=== PATIENT | male | born 1945 | race Caucasian/White ===

== ENCOUNTER → 2016-08-22 | Outpatient (CLI) | payer MEDICARE, BC | LOC: MW.CHFP 08:00 | PROVIDERS: ATTEND Emergency Medicine | DX: J06.9 Acute upper respiratory infection, unspecified (principal); B97.89 Other viral agents as the cause of diseases classified elsewhere | CPT/HCPCS: G0463 ==

== ENCOUNTER 2017-07-18 19:57 | Emergency (ER) | payer MEDICARE, BC ==
[2017-07-18] MEDS ORDERED: Sodium Chloride 0.9% 10 ML Syringe FLUSH PRN (20:25)
[2017-07-18] MEDS ORDERED: Sodium Chloride 0.9% 2.5 ML Syringe FLUSH PRN (20:25)
--- NOTE | 2017-07-18 20:25 | EDM.PDOC ---
<Vesta Galdamez - Last Filed: 07/18/17 21:24> ED HPI GENERAL MEDICAL PROBLEM - General Chief Complaint: Genitourinary Problem Stated Complaint: BLOOD IN URINE Time Seen by Provider: 07/18/17 20:22 Source of Information: Reports: Patient, Family History Limitations: Reports: No Limitations - History of Present Illness INITIAL COMMENTS - FREE TEXT/NARRATIVE: HISTORY AND PHYSICAL: []72-year-old male presenting with blood in his urine today History of Present Illness: []Patient noticed some brownish color to his urine this morning, now it is dark red in color History of acute renal failure and has seen Dr. Myles for the last 2 years in April was told that he did not need to come back and see him he is not on dialysis Review of Systems: As per history of present illness and below otherwise all systems reviewed and negative. Past medical history: As per history of present illness and as reviewed below otherwise noncontributory. Surgical history: As per history of present illness and as reviewed below otherwise noncontributory. Social history: No reported history of drug or alcohol abuse. Family history: As per history of present illness and as reviewed below otherwise noncontributory. Physical exam: Alert and oriented gentleman answering questions appropriately in full sentences without any shortness of breath he denies any pain had some slight discomfort after his last urination. HEENT: Atraumatic, normocehpalic, pupils reactive, negative for conjunctival pallor or scleral icterus, mucous membranes moist, throat clear, neck supple, nontender, trachea midline. Lungs: Clear to auscultation, breath sounds equal bilaterally, chest non tender. Heart: S1S2, regular, negative for clicks, rubs, or JVD. Abdomen: Soft, nondistended, nontender. Negative for masses or hepatossplenmegaly. Negative for costovertebral tenderness. Pelvis: Stable nontender. Genitourinary: Deferred. Rectal: Deferred Extremities: Atraumatic, negative for cords or calf pain. Neurovascular unremarkable. Neuro: Awake, alert, oriented. Cranial nerves II through XII unremarkable. Cerebellum unremarkable. Motor and sensory unremarkable throughout. Exam nonfocal. Diagnostics: [CBC CMP] Therapeutics: [Cipro 400 IV] Impression: [Urinary tract infection] Hematuria Plan: []Discharged to home Cipro 500 twice a day by mouth Follow up with Dr. Beth on Friday July 21, [address] Ely Definitive disposition and diagnosis as appropriate pending reevaluation and review of above. Onset: Today, Sudden Duration: Day(s): (1) Location: Reports: Pelvis Severity: Moderate Improves with: Reports: None Worsens with: Reports: None - Related Data Allergies Allergy/AdvReac Type Severity Reaction Status Date / Time No Known Allergies Allergy Verified 07/18/17 20:16 Home Meds: Home Meds Latanoprost [Xalatan 0.005% Ophth Soln] 1 drop EYEBOTH DAILY 12/26/14 [History] Rosuvastatin [Crestor] 20 mg PO BEDTIME 12/26/14 [History] metFORMIN HCl [Metformin HCl] 500 mg PO BID 12/26/14 [History] Ciprofloxacin/Ciprofloxa HCl [Cipro Xr 500 mg Tablet] 500 mg PO BID #10 tbmp.24hr 07/18/17 [Rx] Furosemide 20 mg PO DAILY 07/18/17 [History] Metoprolol Succinate [Toprol XL] 12.5 mg PO DAILY 07/18/17 [History] Potassium Chloride 20 meq PO DAILY 07/18/17 [History] Timolol Maleate [Istalol] 1 drop OP DAILY 07/18/17 [History] Past Medical History Other HEENT History: wears glasses and has upper denture Other Respiratory History: hx reactive airwary disease Other Genitourinary History: kidney failure - Past Surgical History Other Musculoskeletal Surgeries/Procedures:: R knee replacement - 2015 Social & Family History - Tobacco Use Smoking Status *Q: Unknown Ever Smoked Used Tobacco, but Quit: Yes Second Hand Smoke Exposure: No - Alcohol Use Days Per Week of Alcohol Use: 3 Number of Drinks Per Day: 2 Total Drinks Per Week: 6 - Recreational Drug Use Recreational Drug Use: No ED ROS GENERAL - Review of Systems Review Of Systems: ROS reveals no pertinent complaints other than HPI. ED EXAM, RENAL/ - Physical Exam Exam: See Below (see dictation) Course - Vital Signs Last Recorded V/S: Last Vital Signs Temp 36.2 C 07/18/17 22:25 Pulse 64 07/18/17 22:25 Resp 18 07/18/17 22:25 BP 127/76 07/18/17 22:25 Pulse Ox 96 03/09/18 22:25 - Orders/Labs/Meds Orders: Active Orders 24 hr Category Date Time Status CULTURE URINE [RM] Stat Lab 07/18/17 20:12 Received Saline Lock Insert [OM.PC] Stat Oth 07/18/17 20:25 Ordered Labs: Laboratory Tests 07/18/17 07/18/17 07/18/17 Range/Units 20:12 20:32 20:32 WBC 6.89 (4.0-11.0) K/uL RBC 4.51 (4.50-5.90) M/uL Hgb 14.1 (13.0-17.0) g/dL Hct 41.8 (38.0-50.0) % MCV 92.7 (80.0-98.0) fL MCH 31.3 (27.0-32.0) pg MCHC 33.7 (31.0-37.0) g/dL RDW Std Deviation 47.8 (28.0-62.0) fl RDW Coeff of Cathie 14 (11.0-15.0) % Plt Count 211 (150-400) K/uL MPV 9.90 (7.40-12.00) fL Neut % (Auto) 61.5 (48.0-80.0) % Lymph % (Auto) 26.9 (16.0-40.0) % Beaver % (Auto) 7.7 (0.0-15.0) % Eos % (Auto) 3.8 (0.0-7.0) % Baso % (Auto) 0.1 (0.0-1.5) % Neut # (Auto) 4.2 (1.4-5.7) K/uL Lymph # (Auto) 1.9 (0.6-2.4) K/uL Beaver # (Auto) 0.5 (0.0-0.8) K/uL Eos # (Auto) 0.3 (0.0-0.7) K/uL Baso # (Auto) 0.0 (0.0-0.1) K/uL Nucleated RBC % 0.0 /100WBC Nucleated RBCs # 0 K/uL Sodium 142 (136-148) mmol/L Potassium 4.2 (3.5-5.1) mmol/L Chloride 106 (98-107) mmol/L Carbon Dioxide 24.4 (21.0-32.0) mmol/L BUN 18 (7.0-18.0) mg/dL Creatinine 1.2 (0.8-1.3) mg/dL Est Cr Clr Drug Dosing 54.83 mL/min Estimated GFR (MDRD) 59.3 ml/min Glucose 93 (74-106) mg/dL Calcium 9.0 (8.5-10.1) mg/dL Total Bilirubin 0.7 (0.2-1.0) mg/dL AST 29 (15-37) IU/L ALT 21 (14-63) IU/L Alkaline Phosphatase 94 (46-116) U/L Total Protein 7.3 (6.4-8.2) g/dL Albumin 3.6 (3.4-5.0) g/dL Globulin 3.7 H (2.0-3.5) g/dL Albumin/Globulin Ratio 1.0 L (1.3-2.8) Urine Color RED Urine Appearance SLT CLOUDY Urine pH 6.0 (5.0-8.0) Ur Specific Cantil >= 1.030 (1.001-1.035) Urine Protein >=300 (NEGATIVE) mg/dL Urine Glucose (UA) NEGATIVE (NEGATIVE) mg/dL Urine Ketones NEGATIVE (NEGATIVE) mg/dL Urine Occult Blood LARGE H (NEGATIVE) Urine Nitrite POSITIVE H (NEGATIVE) Urine Bilirubin SMALL H (NEGATIVE) Urine Ictotest NEGATIVE Urine Urobilinogen 4.0 H (<2.0) EU/dL Ur Leukocyte Esterase NEGATIVE (NEGATIVE) Urine RBC TOO NUMBEROUS TO CT (0-2/HPF) Urine WBC 3-5 (0-5/HPF) Ur Epithelial Cells RARE (NONE-FEW) Urine Bacteria 1+ H (NEGATIVE) Urinalysis Comment Meds: Medications Discontinued Medications Generic Name Dose Route Start Last Admin Trade Name Freq PRN Reason Stop Dose Admin Ciprofloxacin/Dextrose 400 mg/ 200 mls @ 200 mls/hr 07/18/17 21:15 07/18/17 21:22 Premix IV 200 mls/hr Q12H JAMILAH Administration Sodium Chloride 10 ml 07/18/17 20:25 Saline Flush FLUSH ASDIRECTED PRN Keep Vein Open Sodium Chloride 2.5 ml 07/18/17 20:25 Saline Flush FLUSH ASDIRECTED PRN Keep Vein Open Departure - Departure Time of Disposition: 21:19 Disposition: Home, Self-Care 01 Condition: Good Clinical Impression: UTI, Urinary tract infectious disease, Hematuria syndrome - Discharge Information Prescriptions: Ciprofloxacin/Ciprofloxa HCl [Cipro Xr 500 mg Tablet] 500 mg PO BID #10 tbmp.24hr Instructions: Urinary Tract Infection, Adult, Hematuria, Adult Referrals: PCP,None [Primary Care Provider] - Chava Ely MD [Physician] - Forms: ED Department Discharge Additional Instructions: The following information is given to patients seen in the emergency department who are being discharged to home. This information is to outline your options for follow-up care. We provide all patients seen in our emergency department with a follow-up referral. The need for follow-up, as well as the timing and circumstances, are variable depending upon the specifics of your emergency department visit. If you don't have a primary care physician on staff, we will provide you with a referral. We always advise you to contact your personal physician following an emergency department visit to inform them of the circumstance of the visit and for follow-up with them and/or the need for any referrals to a consulting specialist. The emergency department will also refer you to a specialist when appropriate. This referral assures that you have the opportunity for followup care with a specialist. All of these measure are taken in an effort to provide you with optimal care, which includes your followup. Under all circumstances we always encourage you to contact your private physician who remains a resource for coordinating your care. When calling for followup care, please make the office aware that this follow-up is from your recent emergency room visit. If for any reason you are refused follow-up, please contact the [facility] emergency department at and asked to speak to the emergency department charge nurse. You have a urinary tract infection You Have blood in the urine (hematuria) You're given an antibiotic of Cipro 400 mg IV in ER Prescription was sent to [facility] for Cipro 500 mg twice a day Call Dr. Beth to follow-up Saturday, July 22, 2017 Referral will be made to Dr. Ely for the hematuria Check your blood sugar daily to make sure the medication is not causing you to have low sugars <Kylee Schuster - Last Filed: 07/19/17 00:06> ED HPI GENERAL MEDICAL PROBLEM - History of Present Illness INITIAL COMMENTS - FREE TEXT/NARRATIVE: Please add to diagnostics that a UA and urine culture were sent.
[2017-07-18] MEDS ORDERED: Ciprofloxacin in D5W 400 MG in Premix Bag 1 BAG IV SCH ×2 (21:15)
[2017-07-18 22:32] VITALS: BP 127/76
== END 2017-07-18 22:25 | disposition home or self-care (01) ==
LOC: MW.ED 19:57
DX: N39.0 Urinary tract infection, site not specified (principal); R31.9 Hematuria, unspecified; Z87.891 Personal history of nicotine dependence; Z79.899 Other long term (current) drug therapy
CPT/HCPCS: 36415; 80053; 81001; 85025; 87086; 96365; 99283; J0744

== ENCOUNTER 2017-08-08 09:32 | Day surgery (SDC) | payer MEDICARE, BC ==
[2017-08-08] MEDS ORDERED: Lactated Ringers 1,000 ML IV SCH ×2 (10:00→11:30)
--- NOTE | 2017-08-08 10:28 | PCM.PREANE ---
Preanesthetic Assessment - Anesthesia/Transfusion/Family Hx Anesthesia History: Prior Anesthesia Without Reaction Family History of Anesthesia Reaction: No Transfusion History: No Prior Transfusion(s) Intubation History: Unknown - Review of Systems General: No Symptoms Pulmonary: No Symptoms Cardiovascular: No Symptoms Gastrointestinal: Other (h/o colon polyp '09) Neurological: No Symptoms Other: Reports: None - Physical Assessment O2 Sat by Pulse Oximetry: 95 Respiratory Rate: 16 Vital Signs: Last Vital Signs Temp 36.1 C 08/08/17 10:12 Pulse 65 08/08/17 10:12 Resp 16 08/08/17 10:12 BP 147/75 H 08/08/17 10:12 Pulse Ox 95 08/08/17 10:12 Height: 1.75 m Weight: 111.13 kg ASA Class: 3 Mental Status: Alert & Oriented x3 Airway Class: Mallampati = 2 Dentition: Reports: Dentures (upper) Thyro-Mental Finger Breadths: 3 Mouth Opening Finger Breadths: 3 ROM/Head Extension: Full Lungs: Clear to Auscultation, Normal Respiratory Effort Cardiovascular: Regular Rate, Regular Rhythm - Allergies Allergies/Adverse Reactions: Allergies Allergy/AdvReac Type Severity Reaction Status Date / Time meloxicam Allergy Cannot Verified 08/05/17 12:22 Remember - Blood Blood Available: No - Anesthesia Plan Pre-Op Medication Ordered: None Beta Ramon: Metoprolol Med Last Dose Date: 08/07/17 Med Last Dose Time: 23:00 - Acknowledgements Anesthesia Type Planned: MAC Pt an Appropriate Candidate for the Planned Anesthesia: Yes Alternatives and Risks of Anesthesia Discussed w Pt/Guardian: Yes Pt/Guardian Understands and Agrees with Anesthesia Plan: Yes PreAnesthesia Questionnaire HEENT History: Reports: Cataract, Other (See Below) Other HEENT History: wears glasses, upper denture Cardiovascular History: Reports: CAD, High Cholesterol, Hypertension, VT, Stents Other Cardiovascular History: VT in 2001 with stent placed x1 LAD Other Respiratory History: hx reactive airwary disease Gastrointestinal History: Reports: Colon Polyp Genitourinary History: Other Genitourinary History: acute kidney injury due to NSAID, on hemo dialysis x3 months in 2014 Musculoskeletal History: Reports: Fracture, Osteoarthritis Other Musculoskeletal History: hx fx leg Endocrine/Metabolic History: Reports: Diabetes, Type II, Obesity/BMI 30+ - Infectious Disease History Infectious Disease History: Reports: Chicken Pox, Measles, Mumps - Past Surgical History Head Surgeries/Procedures: Reports: None HEENT Surgical History: Reports: None Cardiovascular Surgical History: Reports: Coronary Artery Stent Respiratory Surgical History: Reports: None GI Surgical History: Reports: Appendectomy, Colonoscopy Male Surgical History: Reports: Other (See Below) Other Male Surgeries/Procedures: hemo dialysis access catheter placement and removal in 2014 Endocrine Surgical History: Reports: None Musculoskeletal Surgical History: Reports: Knee Replacement Other Musculoskeletal Surgeries/Procedures:: hx rt knee replacement - SUBSTANCE USE Smoking Status *Q: Former Smoker Tobacco Use Within Last Twelve Months: No Second Hand Smoke Exposure: No Days Per Week of Alcohol Use: 3 Number of Drinks Per Day: 2 Total Drinks Per Week: 6 Recreational Drug Use History: No - HOME MEDS Home Medications: Home Meds Latanoprost [Xalatan 0.005% Ophth Soln] 1 drop EYEBOTH BEDTIME 12/26/14 [History ] Rosuvastatin [Crestor] 20 mg PO BEDTIME 12/26/14 [History] metFORMIN HCl [Metformin HCl] 500 mg PO BID 12/26/14 [History] Furosemide 20 mg PO DAILY 07/18/17 [History] Metoprolol Succinate [Toprol XL] 12.5 mg PO DAILY 07/18/17 [History] Potassium Chloride 20 meq PO DAILY 07/18/17 [History] Timolol Maleate [Istalol] 1 drop EYERT DAILY 07/18/17 [History] - CURRENT (IN HOUSE) MEDS Current Meds: Current Medications Lactated Ringer's (Ringers, Lactated) 1,000 mls @ 125 mls/hr IV ASDIRECTED [facility] Last Admin: 08/08/17 10:10 Dose: 125 mls/hr
[2017-08-08] MEDS ORDERED: Lidocaine 2% 5 ML SDV ONE (10:44)
[2017-08-08] MEDS ORDERED: Propofol 200 MG/20 ML SDV ONE (10:45)
[2017-08-08] MEDS ORDERED: Midazolam 1 MG/ML 2 ML SDV ONE (10:46)
[2017-08-08] MEDS ORDERED: fentaNYL 100 MCG/2 ML SDV ONE (10:46)
--- NOTE | 2017-08-08 11:32 | PCM.OPNOTE ---
- General Post-Op/Procedure Note Date of Surgery/Procedure: 08/08/17 Operative Procedure(s): Colonoscopy Pre Op Diagnosis: Personal history of colon polyps Post-Op Diagnosis: Mild sigmoid diverticulosis Anesthesia Technique: MAC (ASA III) Primary Surgeon: Mckinley Vizcaino Condition: Good Free Text/Narrative:: Dictation [id number] CPT CODE [id number]
--- NOTE | 2017-08-08 12:07 | PCM48HPAN ---
Post Anesthesia Note - EVALUATION WITHIN 48HRS OF ANESTHETIC Vital Signs in Normal Range: Yes Patient Participated in Evaluation: Yes Respiratory Function Stable: Yes Airway Patent: Yes Cardiovascular Function Stable: Yes Hydration Status Stable: Yes Pain Control Satisfactory: Yes Nausea and Vomiting Control Satisfactory: Yes Mental Status Recovered: Yes Resp Rate: 11 - COMMENTS/OBSERVATIONS Free Text/Narrative:: no anesthesia problems
--- NOTE | 2017-08-08 13:01 | OR ---
SURGEON: Mckinley Vizcaino M.D. DATE OF PROCEDURE: 08/08/2017 OPERATION PERFORMED: Colonoscopy. ANESTHESIA: MAC. ASA CLASSIFICATION: III. PREOPERATIVE DIAGNOSIS: Personal history of colon polyps. POSTOPERATIVE DIAGNOSIS: Mild sigmoid diverticulosis. DESCRIPTION OF PROCEDURE: The patient was taken to the endoscopy room and positioned on the endoscopy table in the left lateral decubitus position. Time-out was called for appropriate identification of the patient and procedure. Monitored anesthesia care was provided. The colonoscope was inserted into the rectum and advanced without difficulty to the cecum where the colonoscope was retroflexed to visualize the ascending colon from below, then straightened and slowly withdrawn. The cecum, ascending colon, hepatic flexure, transverse colon, splenic flexure, and descending colon were well visualized where there was a moderate amount of retained liquid fecal material. No tumors or polyps were seen, and there were no angiodysplastic changes or evidence of inflammatory bowel disease. As the colonoscope was withdrawn into the sigmoid colon. A few small scattered sigmoid diverticula were noted. No stricture, spasm, or bleeding was noted. The colonoscope was then withdrawn to the rectum and retroflexed to visualize the anal orifice from above. No tumors, polyps, or acute hemorrhoidal changes were noted. The colonoscope was then straightened, the rectum aspirated, and the colonoscope removed. The patient tolerated the procedure well and was taken to recovery room in stable condition. LAVINIA SALAS /[id number]
[2017-08-08 14:43] VITALS: BP 135/82
== END 2017-08-08 12:12 | disposition home or self-care (01) ==
LOC: MW.SDS 09:32
PROVIDERS: ATTEND Surgery
DX: Z12.11 Encounter for screening for malignant neoplasm of colon (principal); K57.30 Diverticulosis of large intestine without perforation or abscess without bleeding; I25.10 Atherosclerotic heart disease of native coronary artery without angina pectoris; E11.9 Type 2 diabetes mellitus without complications; E78.00 Pure hypercholesterolemia, unspecified; I10 Essential (primary) hypertension; Z95.5 Presence of coronary angioplasty implant and graft; J45.909 Unspecified asthma, uncomplicated; I25.2 Old myocardial infarction; E66.9 Obesity, unspecified; Z68.36 Body mass index [BMI] 36.0-36.9, adult; Z86.010 Personal history of colon polyps; Z88.8 Allergy status to other drugs, medicaments and biological substances; Z79.899 Other long term (current) drug therapy; Z79.84 Long term (current) use of oral hypoglycemic drugs; Z98.890 Other specified postprocedural states; Z87.891 Personal history of nicotine dependence
CPT/HCPCS: G0105; J2250; J3010; J7120; J2704

== ENCOUNTER 2017-08-09 01:37 | Emergency (ER) | payer MEDICARE, BC ==
[2017-08-09] MEDS ORDERED: Sodium Chloride 0.9% 2.5 ML Syringe FLUSH PRN (01:39)
[2017-08-09] MEDS ORDERED: Sodium Chloride 0.9% 10 ML Syringe FLUSH PRN (01:39)
[2017-08-09] MEDS ORDERED: Sodium Chloride 0.9% 1,000 ML IV SCH (01:45)
--- NOTE | 2017-08-09 01:45 | EDM.PDOC ---
ED HPI GENERAL MEDICAL PROBLEM - General Stated Complaint: STOMACH PAINS Time Seen by Provider: 08/09/17 01:38 - History of Present Illness INITIAL COMMENTS - FREE TEXT/NARRATIVE: HISTORY AND PHYSICAL: History of present illness: Patient is a 72-year-old white male presents with concern of right-sided abdominal pain that started approximately 1 hour prior to arrival patient had a colonoscopy earlier today that was unremarkable per patient he denies shortness of breath nausea vomiting fever chills he has had prior appendectomy denies known gallbladder disease Review of systems: As per history of present illness and below otherwise all systems reviewed and negative. Past medical history: As per history of present illness and as reviewed below otherwise noncontributory. Surgical history: As per history of present illness and as reviewed below otherwise noncontributory. Social history: No reported history of drug or alcohol abuse. Family history: As per history of present illness and as reviewed below otherwise noncontributory. Physical exam: HEENT: Atraumatic, normocephalic, pupils reactive, negative for conjunctival pallor or scleral icterus, mucous membranes moist, throat clear, neck supple, nontender, trachea midline. Lungs: Clear to auscultation, breath sounds equal bilaterally, chest nontender. Heart: S1S2, regular, negative for clicks, rubs, or JVD. Abdomen: Soft, nondistended, mild tenderness in the epigastrium and right upper quadrant. Negative for masses or hepatosplenomegaly. Negative for costovertebral tenderness. Pelvis: Stable nontender. Genitourinary: Deferred. Rectal: Deferred. Extremities: Atraumatic, negative for cords or calf pain. Neurovascular unremarkable. Neuro: Awake, alert, oriented. Cranial nerves II through XII unremarkable. Cerebellum unremarkable. Motor and sensory unremarkable throughout. Exam nonfocal. Diagnostics: CBC CMP troponin PT/INR lipase CT abdomen and pelvis chest x-ray EKG Therapeutics: Saline 125 mL an hour Impression: #1 abdominal pain #2 24 hour status post colonoscopy Definitive disposition and diagnosis as appropriate pending reevaluation and review of above. RUQ Pain Score (Numeric/FACES): 5 - Related Data Allergies Allergy/AdvReac Type Severity Reaction Status Date / Time meloxicam Allergy Cannot Verified 08/09/17 01:42 Remember Home Meds: Home Meds Latanoprost [Xalatan 0.005% Ophth Soln] 1 drop EYEBOTH BEDTIME 12/26/14 [History ] Rosuvastatin [Crestor] 20 mg PO BEDTIME 12/26/14 [History] metFORMIN HCl [Metformin HCl] 500 mg PO BID 12/26/14 [History] Furosemide 20 mg PO DAILY 07/18/17 [History] Metoprolol Succinate [Toprol XL] 12.5 mg PO DAILY 07/18/17 [History] Potassium Chloride 20 meq PO DAILY 07/18/17 [History] Timolol Maleate [Istalol] 1 drop EYERT DAILY 07/18/17 [History] Past Medical History HEENT History: Reports: Cataract, Other (See Below) Other HEENT History: wears glasses, upper denture Cardiovascular History: Reports: CAD, High Cholesterol, Hypertension, DE, Stents Other Cardiovascular History: DE in 2001 with stent placed x1 LAD Other Respiratory History: hx reactive airwary disease Gastrointestinal History: Reports: Colon Polyp Other Genitourinary History: acute kidney injury due to NSAID, on hemo dialysis x3 months in 2014 Musculoskeletal History: Reports: Fracture, Osteoarthritis Other Musculoskeletal History: hx fx leg Endocrine/Metabolic History: Reports: Diabetes, Type II, Obesity/BMI 30+ - Infectious Disease History Infectious Disease History: Reports: Chicken Pox, Measles, Mumps - Past Surgical History Head Surgeries/Procedures: Reports: None HEENT Surgical History: Reports: None Cardiovascular Surgical History: Reports: Coronary Artery Stent Respiratory Surgical History: Reports: None GI Surgical History: Reports: Appendectomy, Colonoscopy Male Surgical History: Reports: Other (See Below) Other Male Surgeries/Procedures: hemo dialysis access catheter placement and removal in 2014 Endocrine Surgical History: Reports: None Musculoskeletal Surgical History: Reports: Knee Replacement Other Musculoskeletal Surgeries/Procedures:: hx rt knee replacement Social & Family History - Family History Family Medical History: Noncontributory - Tobacco Use Smoking Status *Q: Former Smoker Used Tobacco, but Quit: Yes Month/Year Tobacco Last Used: quit 35 yrs ago Second Hand Smoke Exposure: No - Caffeine Use Caffeine Use: Reports: Soda - Alcohol Use Days Per Week of Alcohol Use: 3 Number of Drinks Per Day: 2 Total Drinks Per Week: 6 - Recreational Drug Use Recreational Drug Use: No ED ROS GENERAL - Review of Systems Review Of Systems: ROS reveals no pertinent complaints other than HPI. ED EXAM, GENERAL - Physical Exam Exam: See Below (dictation) Course - Vital Signs Text/Narrative:: Patient had uneventful course in the emergency department is pain-free and remained pain-free is eager for discharge I discussed with patient and his CT findings including the suspicious lesion within the bladder he does have a scheduled urology follow-up in [place] I discussed them specifically the concerns of this being addressed CT report was given to patient and for urology follow-up. Patient be discharged on Cipro 500 twice a day he is to return for any recurrence of pain nausea vomiting fever chills as discussed Last Recorded V/S: Last Vital Signs Temp 35.9 C 08/09/17 01:39 Pulse 66 08/09/17 03:08 Resp 18 08/09/17 03:08 BP 123/64 08/09/17 03:08 Pulse Ox 96 08/09/17 03:08 - Orders/Labs/Meds Orders: Active Orders 24 hr Category Date Time Status Cardiac Monitoring [RC] . DIRECTED Care 08/09/17 01:38 Active EKG Documentation Completion [RC] STAT Care 08/09/17 01:38 Active Oxygen Therapy, ED [RC] ASDIRECTED Care 08/09/17 01:38 Active Abdomen Pelvis w Cont [CT] Stat Exams 08/09/17 01:39 Taken Chest 1V Frontal [CR] Stat Exams 08/09/17 01:39 Taken CULTURE BLOOD [BC] Stat Lab 08/09/17 02:06 Received CULTURE BLOOD [BC] Stat Lab 08/09/17 02:27 Received CULTURE URINE [RM] Stat Lab 08/09/17 01:39 Ordered UA W/MICROSCOPIC [URIN] Stat Lab 08/09/17 01:38 Ordered Sodium Chloride 0.9% [Normal Saline] 1,000 ml Med 08/09/17 01:45 Active IV STAT Sodium Chloride 0.9% [Saline Flush] Med 08/09/17 01:39 Active 10 ml FLUSH ASDIRECTED PRN Sodium Chloride 0.9% [Saline Flush] Med 08/09/17 01:39 Active 2.5 ml FLUSH ASDIRECTED PRN Blood Culture x2 Reflex Set [OM.PC] Stat Oth 08/09/17 01:39 Ordered Saline Lock Insert [OM.PC] Stat Oth 08/09/17 01:38 Ordered Medication Orders Sodium Chloride (Normal Saline) 1,000 mls @ 125 mls/hr IV STAT JAMILAH Last Admin: 08/09/17 01:52 Dose: 125 mls/hr Sodium Chloride (Saline Flush) 10 ml FLUSH ASDIRECTED PRN PRN Reason: Keep Vein Open Last Admin: 08/09/17 01:52 Dose: 10 ml Sodium Chloride (Saline Flush) 2.5 ml FLUSH ASDIRECTED PRN PRN Reason: Keep Vein Open Last Admin: 08/09/17 01:52 Dose: 2.5 ml Labs: Laboratory Tests 08/09/17 08/09/17 08/09/17 Range/Units 02:06 02:06 02:06 WBC 11.64 H (4.0-11.0) K/uL RBC 4.43 L (4.50-5.90) M/uL Hgb 13.9 (13.0-17.0) g/dL Hct 41.4 (38.0-50.0) % MCV 93.5 (80.0-98.0) fL MCH 31.4 (27.0-32.0) pg MCHC 33.6 (31.0-37.0) g/dL RDW Std Deviation 48.8 (28.0-62.0) fl RDW Coeff of Cathie 15 (11.0-15.0) % Plt Count 182 (150-400) K/uL MPV 9.90 (7.40-12.00) fL Neut % (Auto) 85.5 H (48.0-80.0) % Lymph % (Auto) 8.2 L (16.0-40.0) % Dewitt % (Auto) 4.0 (0.0-15.0) % Eos % (Auto) 2.1 (0.0-7.0) % Baso % (Auto) 0.2 (0.0-1.5) % Neut # (Auto) 10.0 H (1.4-5.7) K/uL Lymph # (Auto) 1.0 (0.6-2.4) K/uL Dewitt # (Auto) 0.5 (0.0-0.8) K/uL Eos # (Auto) 0.2 (0.0-0.7) K/uL Baso # (Auto) 0.0 (0.0-0.1) K/uL Nucleated RBC % 0.0 /100WBC Nucleated RBCs # 0 K/uL INR 0.96 Sodium 139 (136-148) mmol/L Potassium 4.1 (3.5-5.1) mmol/L Chloride 104 (98-107) mmol/L Carbon Dioxide 24.2 (21.0-32.0) mmol/L BUN 20 H (7.0-18.0) mg/dL Creatinine 1.2 (0.8-1.3) mg/dL Est Cr Clr Drug Dosing 54.83 mL/min Estimated GFR (MDRD) 59.3 ml/min Glucose 142 H (74-106) mg/dL Calcium 8.9 (8.5-10.1) mg/dL Total Bilirubin 0.6 (0.2-1.0) mg/dL AST 23 (15-37) IU/L ALT 25 (14-63) IU/L Alkaline Phosphatase 84 (46-116) U/L Troponin I < 0.050 (0.000-0.056) ng/mL Total Protein 6.8 (6.4-8.2) g/dL Albumin 3.4 (3.4-5.0) g/dL Globulin 3.4 (2.0-3.5) g/dL Albumin/Globulin Ratio 1.0 L (1.3-2.8) Lipase 296 (73-393) U/L Meds: Medications Generic Name Dose Route Start Last Admin Trade Name Freq PRN Reason Stop Dose Admin Sodium Chloride 1,000 mls @ 125 mls/hr 08/09/17 01:45 08/09/17 01:52 Normal Saline IV 125 mls/hr STAT JAMILAH Administration Sodium Chloride 10 ml 08/09/17 01:39 08/09/17 01:52 Saline Flush FLUSH 10 ml ASDIRECTED PRN Administration Keep Vein Open Sodium Chloride 2.5 ml 08/09/17 01:39 08/09/17 01:52 Saline Flush FLUSH 2.5 ml ASDIRECTED PRN Administration Keep Vein Open Discontinued Medications Generic Name Dose Route Start Last Admin Trade Name Freq PRN Reason Stop Dose Admin Iopamidol 200 ml 08/09/17 03:07 08/09/17 03:09 Isovue Multipack-370 (76%) IVPUSH 08/09/17 03:08 100 ml ONETIME STA Administration Departure - Departure Time of Disposition: 04:51 Disposition: Home, Self-Care 01 Condition: Good Clinical Impression: Abdominal pain, Lesion of bladder - Discharge Information Additional Instructions: The following information is given to patients seen in the emergency department who are being discharged to home. This information is to outline your options for follow-up care. We provide all patients seen in our emergency department with a follow-up referral. The need for follow-up, as well as the timing and circumstances, are variable depending upon the specifics of your emergency department visit. If you don't have a primary care physician on staff, we will provide you with a referral. We always advise you to contact your personal physician following an emergency department visit to inform them of the circumstance of the visit and for follow-up with them and/or the need for any referrals to a consulting specialist. The emergency department will also refer you to a specialist when appropriate. This referral assures that you have the opportunity for followup care with a specialist. All of these measure are taken in an effort to provide you with optimal care, which includes your followup. Under all circumstances we always encourage you to contact your private physician who remains a resource for coordinating your care. When calling for followup care, please make the office aware that this follow-up is from your recent emergency room visit. If for any reason you are refused follow-up, please contact the [facility] emergency department at and asked to speak to the emergency department charge nurse. Cipro as prescribed keep urology follow-up return as needed as discussed - My Orders Last 24 Hours: My Active Orders 08/09/17 01:38 Cardiac Monitoring [RC] . DIRECTED EKG Documentation Completion [RC] STAT Oxygen Therapy, ED [RC] ASDIRECTED UA W/MICROSCOPIC [URIN] Stat Saline Lock Insert [OM.PC] Stat 08/09/17 01:39 Abdomen Pelvis w Cont [CT] Stat Chest 1V Frontal [CR] Stat CULTURE URINE [RM] Stat Sodium Chloride 0.9% [Saline Flush] 10 ml FLUSH ASDIRECTED PRN Sodium Chloride 0.9% [Saline Flush] 2.5 ml FLUSH ASDIRECTED PRN Blood Culture x2 Reflex Set [OM.PC] Stat 08/09/17 01:45 Sodium Chloride 0.9% [Normal Saline] 1,000 ml IV STAT 08/09/17 02:06 CULTURE BLOOD [BC] Stat 08/09/17 02:27 CULTURE BLOOD [BC] Stat - Assessment/Plan Last 24 Hours: My Active Orders 08/09/17 01:38 Cardiac Monitoring [RC] . DIRECTED EKG Documentation Completion [RC] STAT Oxygen Therapy, ED [RC] ASDIRECTED UA W/MICROSCOPIC [URIN] Stat Saline Lock Insert [OM.PC] Stat 08/09/17 01:39 Abdomen Pelvis w Cont [CT] Stat Chest 1V Frontal [CR] Stat CULTURE URINE [RM] Stat Sodium Chloride 0.9% [Saline Flush] 10 ml FLUSH ASDIRECTED PRN Sodium Chloride 0.9% [Saline Flush] 2.5 ml FLUSH ASDIRECTED PRN Blood Culture x2 Reflex Set [OM.PC] Stat 08/09/17 01:45 Sodium Chloride 0.9% [Normal Saline] 1,000 ml IV STAT 08/09/17 02:06 CULTURE BLOOD [BC] Stat 08/09/17 02:27 CULTURE BLOOD [BC] Stat
[2017-08-09 02:43] LABS: CHLORIDE,CL 104 mmol/L (98-107); SODIUM,NA 139 mmol/L (136-148)
[2017-08-09] MEDS ORDERED: Iopamidol 755 MG/ML 200 ML Multipack Bottle IVPUSH STA (03:07)
[2017-08-09 05:13] VITALS: BP 113/66
--- NOTE | 2017-08-11 10:58 | CR ---
EXAM DATE: 08/09/17 PATIENT'S AGE: 72 Patient: LIZZETTE SHEETS Facility: [place], [place] Site . Site : 1945 Study: XRay Chest [id number]/31/2018 3:14:53 AM Ordering Physician: Caroline Donohue Final Report: Indication: Abdominal pain Technique: Chest 1 view Comparison: 01/01/2015. Findings/Impression: Cardiovascular and mediastinum: Stable cardiomediastinal silhouette. A prominent epicardial fat pad again seen adjacent to the cardiac apex. Lungs and pleural space: Mild left basilar chronic subsegmental atelectasis or scarring. No consolidation or pleural effusions. Bones and soft tissues: No significant change. Dictated by Laci Ramos MD @ 08/09/2017 4:31:16 AM Dictated by: Laci Ramos MD @ 08/09/2017 04:31:21 (Electronic Signature) Report Signed by Proxy. SHANKAR
--- NOTE | 2017-08-11 10:59 | CT ---
EXAM DATE: 08/09/17 PATIENT'S AGE: 72 Patient: LIZZETTE SHEETS Facility: [place], [place] Site . Site : 1945 Study: CT Abdomen/Pelvis WITH [id number]/31/[id number] 3:15:18 AM Ordering Physician: Caroline Donohue Final Report: Abdominal pain following colonoscopy Technique contrast-enhanced CT abdomen and pelvis with coronal and sagittal reformat images obtained. Findings : 5 mm left lower lobe pulmonary nodule series 202 image 5. Bibasilar atelectasis. No effusion. Heart size is normal. Mild fatty liver. Cholelithiasis. Too small to characterize low-density lesions in the liver could represent small cysts. Spleen pancreas adrenal glands are unremarkable. No abdominal aortic aneurysm. Small cyst in the left kidney probable tiny cysts in the right kidney. No hydronephrosis or nephrolithiasis Prostate gland is unremarkable. The colon appears unremarkable. There is no free air or pericolonic inflammatory change seen. Probable appendiceal stump. No obstruction. No free air seen. There is a 2.4 x 1.6 cm soft tissue mass containing calcifications in the right lateral bladder. No retroperitoneal or pelvic adenopathy seen. No suspicious bony lesions visualized. A sclerotic focus in the left ilium could represent a bone island. IMPRESSION: 1. No acute findings in the abdomen or pelvis. No pericolonic fluid no free air. 2. 2.4 by 1.6 centimeter mass within the right lateral bladder suspicious for malignancy. Urology consultation would be recommended. 3. 5 millimeter left lower lobe pulmonary nodule. Please note that all CT scans at this facility use dose modulation, iterative reconstruction, and/or weight-based dosing when appropriate to reduce radiation dose to as low as reasonably achievable. Dictated by Zora Sebastian MD @ Aug 09 2017 1:29PM (Electronic Signature) Report Signed by Proxy. SHANKAR
== END 2017-08-09 05:05 | disposition home or self-care (01) ==
LOC: MW.ED 01:37
DX: N32.9 Bladder disorder, unspecified (principal); R10.13 Epigastric pain; R10.11 Right upper quadrant pain; I25.10 Atherosclerotic heart disease of native coronary artery without angina pectoris; E78.00 Pure hypercholesterolemia, unspecified; I10 Essential (primary) hypertension; I25.2 Old myocardial infarction; E11.9 Type 2 diabetes mellitus without complications; Z88.8 Allergy status to other drugs, medicaments and biological substances; Z79.899 Other long term (current) drug therapy; Z79.84 Long term (current) use of oral hypoglycemic drugs; Z87.891 Personal history of nicotine dependence
CPT/HCPCS: 36415; 71045; 74177; 80053; 81001; 83690; 84484; 85025; 85610; 87040; 87086; 93005; 96360; 96361; 99285; J7040; Q9967; 99283

== ENCOUNTER 2017-08-15 14:43 | Observation (INO) | payer MEDICARE, BC ==
[2017-08-15] MEDS ORDERED: Iopamidol 755 MG/ML 200 ML Multipack Bottle IVPUSH STA (16:52)
[2017-08-15] MEDS ORDERED: Lactated Ringers 1,000 ML IV ONE (18:33)
--- NOTE | 2017-08-15 19:01 | EDM.PDOC ---
ED HPI GENERAL MEDICAL PROBLEM - General Chief Complaint: Abdominal Pain Stated Complaint: ABDOMINAL PAIN Time Seen by Provider: 08/15/17 15:00 Source of Information: Reports: Patient History Limitations: Reports: No Limitations - History of Present Illness INITIAL COMMENTS - FREE TEXT/NARRATIVE: HISTORY AND PHYSICAL: History of present illness: [Comes to the emergency room complaining of right upper quadrant abdominal pain. He had a colonoscopy on August [address] Vizcaino. Findings were benign according to patient. He has not had a bowel movement since that time. He followed up with his urologist in [place] this morning and was diagnosed with bladder cancer. His abdomen has been getting more and more distended over the past week. He has a painful spasming sensation to his right upper quadrant. Has been present for the past couple of days but is gradually worsening today. Denies fever and chills. No sore throat, runny nose or cough. Denies chest pain shortness of breath and difficulty breathing. No burning with urination no blood in his urine. Denies low back pain. No muscle aches or joint pains. No radiation of his abdominal pain.] Review of systems: As per history of present illness and below otherwise all systems reviewed and negative. Past medical history: As per history of present illness and as reviewed below otherwise noncontributory. Surgical history: As per history of present illness and as reviewed below otherwise noncontributory. Social history: No reported history of drug or alcohol abuse. Family history: As per history of present illness and as reviewed below otherwise noncontributory. Physical exam: HEENT: Atraumatic, normocephalic. Oral mucous membranes are pink and moist. Neck supple, no lymphadenopathy. Lungs: Clear to auscultation, breath sounds equal bilaterally. Heart: S1S2, regular rate and rhythm. Abdomen: Bowel sounds are quiet and high-pitched throughout abdomen. Distended and somewhat hard throughout. He is tender with mild palpation of his right upper quadrant. Is otherwise nontender. No masses guarding or rebound. egative for costovertebral tenderness. Pelvis: Stable nontender. Genitourinary: Deferred. Rectal: Deferred. Extremities: Atraumatic, negative for cords or calf pain. No cyanosis or edema to feet or lower legs. Neurovascular unremarkable. Neuro: Awake, alert, oriented. Motor and sensory unremarkable throughout. Exam nonfocal. Diagnostics: [CBC, CMP, amylase, lipase, CT abd & pelvis w/ contrast] Therapeutics: [Lactated Ringer's 1000mL IV] Impression: [cholecystitis] Plan: [White blood cell 11.17. Hemoglobin 13.3. BUN 19, creatinine 1.4. LFTs unremarkable. Amylase 42. Lipase 362. CT of abdomen and pelvis shows gallbladder wall edema and inflammation consistent with cholecystitis. Dr. Luna arrives to ER and evaluates patient at 1850. Patient is admitted for observation under the care of Dr. Garzon.] Definitive disposition and diagnosis as appropriate pending reevaluation and review of above. Right Upper Abdomen Pain Score (Numeric/FACES): 3 - Related Data Allergies Allergy/AdvReac Type Severity Reaction Status Date / Time meloxicam Allergy Cannot Verified 08/15/17 14:49 Remember Home Meds: Home Meds Latanoprost [Xalatan 0.005% Ophth Soln] 1 drop EYEBOTH BEDTIME 12/26/14 [History ] Rosuvastatin [Crestor] 20 mg PO BEDTIME 12/26/14 [History] metFORMIN HCl [Metformin HCl] 500 mg PO BID 12/26/14 [History] Furosemide 20 mg PO DAILY 07/18/17 [History] Metoprolol Succinate [Toprol XL] 12.5 mg PO DAILY 07/18/17 [History] Potassium Chloride 20 meq PO DAILY 07/18/17 [History] Timolol Maleate [Istalol] 1 drop EYERT DAILY 07/18/17 [History] Past Medical History HEENT History: Reports: Cataract, Other (See Below) Other HEENT History: wears glasses, upper denture Cardiovascular History: Reports: CAD, High Cholesterol, Hypertension, OK, Stents Other Cardiovascular History: OK in 2001 with stent placed x1 LAD Other Respiratory History: hx reactive airwary disease Gastrointestinal History: Reports: Colon Polyp Other Genitourinary History: acute kidney injury due to NSAID, on hemo dialysis x3 months in 2014 Musculoskeletal History: Reports: Fracture, Osteoarthritis Other Musculoskeletal History: hx fx leg Endocrine/Metabolic History: Reports: Diabetes, Type II, Obesity/BMI 30+ Oncologic (Cancer) History: Reports: Bladder - Infectious Disease History Infectious Disease History: Reports: Chicken Pox, Measles, Mumps - Past Surgical History Head Surgeries/Procedures: Reports: None HEENT Surgical History: Reports: None Cardiovascular Surgical History: Reports: Coronary Artery Stent Respiratory Surgical History: Reports: None GI Surgical History: Reports: Appendectomy, Colonoscopy Male Surgical History: Reports: Other (See Below) Other Male Surgeries/Procedures: hemo dialysis access catheter placement and removal in 2015 Endocrine Surgical History: Reports: None Musculoskeletal Surgical History: Reports: Knee Replacement Other Musculoskeletal Surgeries/Procedures:: hx rt knee replacement Social & Family History - Family History Family Medical History: Noncontributory - Tobacco Use Smoking Status *Q: Never Smoker Used Tobacco, but Quit: Yes Month/Year Tobacco Last Used: quit 35 yrs ago Second Hand Smoke Exposure: No - Caffeine Use Caffeine Use: Reports: None - Alcohol Use Days Per Week of Alcohol Use: 3 Number of Drinks Per Day: 2 Total Drinks Per Week: 6 - Recreational Drug Use Recreational Drug Use: No ED ROS GENERAL - Review of Systems Review Of Systems: ROS reveals no pertinent complaints other than HPI. ED EXAM, GI/ABD - Physical Exam Exam: See Below Course - Vital Signs Last Recorded V/S: Last Vital Signs Temp 98.5 F 08/15/17 20:45 Pulse 95 08/15/17 20:45 Resp 14 08/15/17 20:45 BP 143/90 H 08/15/17 20:45 Pulse Ox 92 L 08/15/17 20:45 - Orders/Labs/Meds Orders: Active Orders 24 hr Category Date Time Status Admission Status [Patient Status] [ADT] Stat ADT 08/15/17 19:45 Active Blood Glucose Check, Bedside [RC] TIDAC Care 08/15/17 19:55 Active EKG 12 Lead [EKG Documentation Completion] [RC] STAT Care 08/15/17 19:12 Active NPO [Nothing Per Oral Diet] [DIET] Diet 08/16/17 Breakfast Active Abdomen Pelvis w Cont [CT] Stat Exams 08/15/17 15:13 Taken CBC WITH AUTO DIFF [HEME] AM Lab 08/16/17 05:11 Ordered COMPREHENSIVE METABOLIC PN,CMP [CHEM] AM Lab 08/16/17 05:11 Ordered Acetaminophen/oxyCODONE [Percocet 325-5 MG] Med 08/15/17 19:51 Active 1 tab PO Q8H PRN Lactated Ringers [Ringers, Lactated] 1,000 ml Med 08/15/17 18:33 Active IV .BOLUS Lactated Ringers [Ringers, Lactated] 1,000 ml Med 08/15/17 20:00 Active IV ASDIRECTED Ondansetron [Zofran] Med 08/15/17 19:51 Active 4 mg IVPUSH Q8H PRN Pantoprazole [ProTONIX IV] Med 08/16/17 09:00 Active 40 mg IVPUSH DAILY Medication Orders Furosemide (Lasix) 20 mg PO DAILY JAMILAH Lactated Ringer's (Ringers, Lactated) 1,000 mls @ 125 mls/hr IV .BOLUS ONE Stop: 08/16/17 02:32 Last Admin: 08/15/17 18:37 Dose: 125 mls/hr Lactated Ringer's (Ringers, Lactated) 1,000 mls @ 100 mls/hr IV ASDIRECTED JAMILAH Latanoprost (Xalatan 0.005% Ophth Soln) 0 ml EYEBOTH BEDTIME JAMILAH Metformin HCl (Glucophage) 500 mg PO BID JAMILAH Metoprolol Succinate (Toprol Xl) 12.5 mg PO DAILY JAMILAH Non-Formulary Medication (Rosuvastatin [Crestor]) 20 mg PO BEDTIME JAMILAH Non-Formulary Medication (Timolol Maleate [Istalol]) 1 drop EYERT BID JAMILAH Ondansetron HCl (Zofran) 4 mg IVPUSH Q8H PRN PRN Reason: Nausea/Vomiting Oxycodone/Acetaminophen (Percocet 325-5 Mg) 1 tab PO Q8H PRN PRN Reason: Pain Pantoprazole Sodium (Protonix Iv) 40 mg IVPUSH DAILY [facility] Potassium Chloride (Klor-Con) 20 meq PO DAILY [facility] Labs: Laboratory Tests 08/15/17 08/15/17 08/15/17 Range/Units 15:25 15:25 15:25 WBC 11.17 H (4.0-11.0) K/uL RBC 4.35 L (4.50-5.90) M/uL Hgb 13.3 (13.0-17.0) g/dL Hct 40.5 (38.0-50.0) % MCV 93.1 (80.0-98.0) fL MCH 30.6 (27.0-32.0) pg MCHC 32.8 (31.0-37.0) g/dL RDW Std Deviation 49.3 (28.0-62.0) fl RDW Coeff of Cathie 14 (11.0-15.0) % Plt Count 242 (150-400) K/uL MPV 10.00 (7.40-12.00) fL Neut % (Auto) 78.9 (48.0-80.0) % Lymph % (Auto) 8.7 L (16.0-40.0) % [place] % (Auto) 8.4 (0.0-15.0) % Eos % (Auto) 3.8 (0.0-7.0) % Baso % (Auto) 0.2 (0.0-1.5) % Neut # (Auto) 8.8 H (1.4-5.7) K/uL Lymph # (Auto) 1.0 (0.6-2.4) K/uL [place] # (Auto) 0.9 H (0.0-0.8) K/uL Eos # (Auto) 0.4 (0.0-0.7) K/uL Baso # (Auto) 0.0 (0.0-0.1) K/uL Nucleated RBC % 0.0 /100WBC Nucleated RBCs # 0 K/uL Sodium 138 (136-148) mmol/L Potassium 4.3 (3.5-5.1) mmol/L Chloride 103 (98-107) mmol/L Carbon Dioxide 26.2 (21.0-32.0) mmol/L BUN 19 H (7.0-18.0) mg/dL Creatinine 1.4 H (0.8-1.3) mg/dL Est Cr Clr Drug Dosing 46.99 mL/min Estimated GFR (MDRD) 49.7 ml/min Glucose 111 H (74-106) mg/dL Calcium 9.4 (8.5-10.1) mg/dL Total Bilirubin 0.5 (0.2-1.0) mg/dL AST 20 (15-37) IU/L ALT 17 (14-63) IU/L Alkaline Phosphatase 88 (46-116) U/L Total Protein 8.0 (6.4-8.2) g/dL Albumin 3.1 L (3.4-5.0) g/dL Globulin 4.9 H (2.0-3.5) g/dL Albumin/Globulin Ratio 0.6 L (1.3-2.8) Amylase 42 (25-115) U/L Lipase 362 (73-393) U/L Meds: Medications Generic Name Dose Route Start Last Admin Trade Name María PRN Reason Stop Dose Admin Furosemide 20 mg 08/16/17 09:00 Lasix PO DAILY JAMILAH Lactated Ringer's 1,000 mls @ 125 mls/hr 08/15/17 18:33 08/15/17 18:37 Ringers, Lactated IV 08/16/17 02:32 125 mls/hr .BOLUS ONE Administration Lactated Ringer's 1,000 mls @ 100 mls/hr 08/15/17 20:00 Ringers, Lactated IV ASDIRECTED JAMILAH Latanoprost 0 ml 08/15/17 21:00 Xalatan 0.005% Ophth Soln EYEBOTH BEDTIME JAMILAH Metformin HCl 500 mg 08/15/17 21:00 Glucophage PO BID [facility] Metoprolol Succinate 12.5 mg 08/16/17 09:00 Toprol Xl PO DAILY JAMILAH Non-Formulary Medication 20 mg 08/15/17 21:00 Rosuvastatin [Crestor] PO BEDTIME JAMILAH Non-Formulary Medication 1 drop 08/15/17 21:00 Timolol Maleate [Istalol] EYERT BID [facility] Ondansetron HCl 4 mg 08/15/17 19:51 Zofran IVPUSH Q8H PRN Nausea/Vomiting Oxycodone/Acetaminophen 1 tab 08/15/17 19:51 Percocet 325-5 Mg PO Q8H PRN Pain Pantoprazole Sodium 40 mg 08/16/17 09:00 Protonix Iv IVPUSH DAILY [facility] Potassium Chloride 20 meq 08/16/17 09:00 Klor-Con PO DAILY JAMILAH Discontinued Medications Generic Name Dose Route Start Last Admin Trade Name María PRN Reason Stop Dose Admin Bisacodyl 10 mg 08/15/17 19:56 Dulcolax RECTAL 08/15/17 19:57 ONETIME ONE Levofloxacin/Dextrose 750 mg/ 150 mls @ 100 mls/hr 08/15/17 19:50 08/15/17 20 :11 Premix IV 08/15/17 21:19 100 mls/hr ONETIME ONE Administration Iopamidol 75 ml 08/15/17 16:52 08/15/17 16:53 Isovue Multipack-370 (76%) IVPUSH 08/15/17 16:53 75 ml ONETIME STA Administration Departure - Departure Time of Disposition: 19:45 Disposition: Refer to Observation Condition: Good Clinical Impression: Cholecystitis - Discharge Information - My Orders Last 24 Hours: My Active Orders 08/15/17 15:13 Abdomen Pelvis w Cont [CT] Stat 08/15/17 18:33 Lactated Ringers [Ringers, Lactated] 1,000 ml IV .BOLUS - Assessment/Plan Last 24 Hours: My Active Orders 08/15/17 15:13 Abdomen Pelvis w Cont [CT] Stat 08/15/17 18:33 Lactated Ringers [Ringers, Lactated] 1,000 ml IV .BOLUS
[2017-08-15] MEDS ORDERED: Levofloxacin/Dextrose 5%-Water 750 MG in Premix Bag 1 BAG IV ONE (19:50)
[2017-08-15] MEDS ORDERED: Ondansetron 4 MG/2 ML SDV IVPUSH PRN (19:51)
[2017-08-15] MEDS ORDERED: Acetaminophen/oxyCODONE 325-5 MG Tab PO PRN (19:51)
[2017-08-15] MEDS ORDERED: Bisacodyl 10 MG Supp RECTAL ONE ×2 (19:56→22:15)
[2017-08-15] MEDS ORDERED: Non-Formulary Medication 1 Each (Rosuvastatin [Crestor] 20 MG) PO SCH (21:00)
[2017-08-15] MEDS ORDERED: metFORMIN 500 MG Tab PO SCH (21:00)
[2017-08-15] MEDS: TIMOLOL MALEATE EYERT SCH (22:34)
[2017-08-15] MEDS: Latanoprost 0.005% Ophth Soln 2.5 ML Bottle EYEBOTH SCH ×2 (22:34→22:51)
[2017-08-16] MEDS: Lactated Ringers 1,000 ML IV SCH ×3 (02:01→20:21)
[2017-08-16] MEDS: Insulin Aspart 100 Units/ML 3 ML Pen SUBCUT SCH ×3 (06:16→18:03)
[2017-08-16] MEDS: Pantoprazole 40 MG Vial IVPUSH SCH (08:15)
[2017-08-16] MEDS: TIMOLOL MALEATE EYERT SCH ×3 (08:25→20:14)
[2017-08-16] MEDS ORDERED: Potassium Chloride 20 MEQ Packet PO SCH (09:00)
[2017-08-16] MEDS: Furosemide 20 MG Tab PO SCH (09:23)
[2017-08-16] MEDS: Potassium Chloride 20 MEQ Tab.ER PO SCH (09:23)
[2017-08-16] MEDS: Metoprolol Succinate 25 MG Tab.ER PO SCH (09:24)
--- NOTE | 2017-08-16 10:12 | PCM.SURGPN ---
- General Info Date of Service: 08/16/17 Functional Status: Reports: Pain Controlled - Review of Systems General: Reports: No Symptoms Gastrointestinal: Reports: No Symptoms - Patient Data Vitals - Most Recent: Last Vital Signs Temp 98.2 F 08/16/17 07:24 Pulse 76 08/16/17 09:24 Resp 20 08/16/17 07:24 BP 133/61 08/16/17 09:24 Pulse Ox 91 L 08/16/17 07:24 Weight - Most Recent: 239 lb 11.2 oz I&O - Last 24 Hours: Intake & Output 08/15/17 08/16/17 08/16/17 22:59 06:59 14:59 Intake Total 745 Output Total 100 Balance 645 Lab Results Last 24 Hrs: Laboratory Results - last 24 hr 08/15/17 08/15/17 08/15/17 Range/Units 15:25 15:25 15:25 WBC 11.17 H (4.0-11.0) K/uL RBC 4.35 L (4.50-5.90) M/uL Hgb 13.3 (13.0-17.0) g/dL Hct 40.5 (38.0-50.0) % MCV 93.1 (80.0-98.0) fL MCH 30.6 (27.0-32.0) pg MCHC 32.8 (31.0-37.0) g/dL RDW Std Deviation 49.3 (28.0-62.0) fl RDW Coeff of Cathie 14 (11.0-15.0) % Plt Count 242 (150-400) K/uL MPV 10.00 (7.40-12.00) fL Neut % (Auto) 78.9 (48.0-80.0) % Lymph % (Auto) 8.7 L (16.0-40.0) % [place] % (Auto) 8.4 (0.0-15.0) % Eos % (Auto) 3.8 (0.0-7.0) % Baso % (Auto) 0.2 (0.0-1.5) % Neut # (Auto) 8.8 H (1.4-5.7) K/uL Lymph # (Auto) 1.0 (0.6-2.4) K/uL [place] # (Auto) 0.9 H (0.0-0.8) K/uL Eos # (Auto) 0.4 (0.0-0.7) K/uL Baso # (Auto) 0.0 (0.0-0.1) K/uL Nucleated RBC % 0.0 /100WBC Nucleated RBCs # 0 K/uL Sodium 138 (136-148) mmol/L Potassium 4.3 (3.5-5.1) mmol/L Chloride 103 (98-107) mmol/L Carbon Dioxide 26.2 (21.0-32.0) mmol/L BUN 19 H (7.0-18.0) mg/dL Creatinine 1.4 H (0.8-1.3) mg/dL Est Cr Clr Drug Dosing 46.99 mL/min Estimated GFR (MDRD) 49.7 ml/min Glucose 111 H (74-106) mg/dL Calcium 9.4 (8.5-10.1) mg/dL Total Bilirubin 0.5 (0.2-1.0) mg/dL AST 20 (15-37) IU/L ALT 17 (14-63) IU/L Alkaline Phosphatase 88 (46-116) U/L Total Protein 8.0 (6.4-8.2) g/dL Albumin 3.1 L (3.4-5.0) g/dL Globulin 4.9 H (2.0-3.5) g/dL Albumin/Globulin Ratio 0.6 L (1.3-2.8) Amylase 42 (25-115) U/L Lipase 362 (73-393) U/L 08/16/17 08/16/17 Range/Units 06:07 06:07 WBC 7.47 (4.0-11.0) K/uL RBC 4.02 L (4.50-5.90) M/uL Hgb 12.4 L (13.0-17.0) g/dL Hct 37.4 L (38.0-50.0) % MCV 93.0 (80.0-98.0) fL MCH 30.8 (27.0-32.0) pg MCHC 33.2 (31.0-37.0) g/dL RDW Std Deviation 48.3 (28.0-62.0) fl RDW Coeff of Cathie 14 (11.0-15.0) % Plt Count 206 (150-400) K/uL MPV 9.70 (7.40-12.00) fL Neut % (Auto) 79.1 (48.0-80.0) % Lymph % (Auto) 7.8 L (16.0-40.0) % [place] % (Auto) 8.0 (0.0-15.0) % Eos % (Auto) 5.0 (0.0-7.0) % Baso % (Auto) 0.1 (0.0-1.5) % Neut # (Auto) 5.9 H (1.4-5.7) K/uL Lymph # (Auto) 0.6 (0.6-2.4) K/uL [place] # (Auto) 0.6 (0.0-0.8) K/uL Eos # (Auto) 0.4 (0.0-0.7) K/uL Baso # (Auto) 0.0 (0.0-0.1) K/uL Nucleated RBC % 0.0 /100WBC Nucleated RBCs # 0 K/uL Sodium 136 (136-148) mmol/L Potassium 3.8 (3.5-5.1) mmol/L Chloride 102 (98-107) mmol/L Carbon Dioxide 25.0 (21.0-32.0) mmol/L BUN 17 (7.0-18.0) mg/dL Creatinine 1.2 (0.8-1.3) mg/dL Est Cr Clr Drug Dosing 54.83 mL/min Estimated GFR (MDRD) 59.3 ml/min Glucose 108 H (74-106) mg/dL Calcium 9.2 (8.5-10.1) mg/dL Total Bilirubin 0.6 (0.2-1.0) mg/dL AST 17 (15-37) IU/L ALT 12 L (14-63) IU/L Alkaline Phosphatase 79 (46-116) U/L Total Protein 6.8 (6.4-8.2) g/dL Albumin 2.7 L (3.4-5.0) g/dL Globulin 4.1 H (2.0-3.5) g/dL Albumin/Globulin Ratio 0.7 L (1.3-2.8) Amylase (25-115) U/L Lipase (73-393) U/L Med Orders - Current: Current Medications Furosemide (Lasix) 20 mg PO DAILY [facility] Last Admin: 08/16/17 09:23 Dose: 20 mg Lactated Ringer's (Ringers, Lactated) 1,000 mls @ 100 mls/hr IV ASDIRECTED [facility] Last Admin: 08/16/17 02:01 Dose: 100 mls/hr Insulin Aspart (Novolog) 0 unit SUBCUT Q6H [facility]; Protocol Last Admin: 08/16/17 06:16 Dose: Not Given Latanoprost (Xalatan 0.005% Ophth Soln) 0 ml EYEBOTH BEDTIME [facility] Last Admin: 08/15/17 22:51 Dose: 1 drop Metoprolol Succinate (Toprol Xl) 12.5 mg PO DAILY [facility] Last Admin: 08/16/17 09:24 Dose: 12.5 mg Non-Formulary Medication (Rosuvastatin [Crestor]) 20 mg PO BEDTIME [facility] Last Admin: 08/15/17 22:33 Dose: Not Given Non-Formulary Medication (Timolol Maleate [Istalol]) 1 drop EYERT BID [facility] Last Admin: 08/16/17 08:25 Dose: Not Given Ondansetron HCl (Zofran) 4 mg IVPUSH Q8H PRN PRN Reason: Nausea/Vomiting Oxycodone/Acetaminophen (Percocet 325-5 Mg) 1 tab PO Q8H PRN PRN Reason: Pain Pantoprazole Sodium (Protonix Iv) 40 mg IVPUSH DAILY [facility] Last Admin: 08/16/17 08:15 Dose: 40 mg Potassium Chloride (Klor-Con M20) 20 meq PO DAILY [facility] Last Admin: 08/16/17 09:23 Dose: 20 meq Discontinued Medications Bisacodyl (Dulcolax) 10 mg RECTAL ONETIME ONE Stop: 08/15/17 19:57 Last Admin: 08/15/17 22:25 Dose: Not Given Bisacodyl (Dulcolax) 10 mg RECTAL ONETIME ONE Stop: 08/15/17 22:16 Last Admin: 08/15/17 22:21 Dose: 10 mg Lactated Ringer's (Ringers, Lactated) 1,000 mls @ 125 mls/hr IV .BOLUS ONE Stop: 08/16/17 02:32 Last Admin: 08/15/17 18:37 Dose: 125 mls/hr Levofloxacin/Dextrose 750 mg/ (Premix) 150 mls @ 100 mls/hr IV ONETIME ONE Stop: 08/15/17 21:19 Last Admin: 08/15/17 20:11 Dose: 100 mls/hr Iopamidol (Isovue Multipack-370 (76%)) 75 ml IVPUSH ONETIME STA Stop: 08/15/17 16:53 Last Admin: 08/15/17 16:53 Dose: 75 ml Metformin HCl (Glucophage) 500 mg PO BID JAMLIAH Last Admin: 08/15/17 22:33 Dose: Not Given Potassium Chloride (Klor-Con) 20 meq PO DAILY JAMILAH - Exam General: Alert, Oriented GI/Abdominal Exam: Normal Bowel Sounds, Soft, Non-Tender (pain resolved) - Problem List Review Problem List Initiated/Reviewed/Updated: Yes - My Orders Last 24 Hours: Active Orders 24 hr Category Date Time Status Admission Status [Patient Status] [ADT] Stat ADT 08/15/17 19:45 Active Blood Glucose Check, Bedside [RC] Q6HR Care 08/16/17 06:00 Active Clear Liquid Diet [DIET] Diet 08/16/17 Lunch Active NPO [Nothing Per Oral Diet] [DIET] Diet 08/16/17 Breakfast Active Abdomen Pelvis w Cont [CT] Stat Exams 08/15/17 15:13 Taken Acetaminophen/oxyCODONE [Percocet 325-5 MG] Med 08/15/17 19:51 Active 1 tab PO Q8H PRN Furosemide [Lasix] Med 08/16/17 09:00 Active 20 mg PO DAILY Insulin Aspart [NovoLOG] Med 08/16/17 06:00 Active See Protocol SUBCUT Q6H Lactated Ringers [Ringers, Lactated] 1,000 ml Med 08/15/17 20:00 Active IV ASDIRECTED Latanoprost [Xalatan 0.005% Ophth Soln] Med 08/15/17 21:00 Active 0 ml EYEBOTH BEDTIME Metoprolol Succinate [Toprol XL] Med 08/16/17 09:00 Active 12.5 mg PO DAILY Ondansetron [Zofran] Med 08/15/17 19:51 Active 4 mg IVPUSH Q8H PRN Pantoprazole [ProTONIX IV] Med 08/16/17 09:00 Active 40 mg IVPUSH DAILY Potassium Chloride [Klor-Con M20] Med 08/16/17 09:00 Active 20 meq PO DAILY Rosuvastatin [Crestor] Med 08/15/17 21:00 Active 20 mg PO BEDTIME Timolol Maleate [Istalol] Med 08/15/17 21:00 Active 1 drop EYERT BID Medication Orders Furosemide (Lasix) 20 mg PO DAILY [facility] Last Admin: 08/16/17 09:23 Dose: 20 mg Lactated Ringer's (Ringers, Lactated) 1,000 mls @ 100 mls/hr IV ASDIRECTED [facility] Last Admin: 08/16/17 02:01 Dose: 100 mls/hr Insulin Aspart (Novolog) 0 unit SUBCUT Q6H [facility]; Protocol Last Admin: 08/16/17 06:16 Dose: Not Given Latanoprost (Xalatan 0.005% Oph Soln) 0 ml EYEBOTH BEDTIME [facility] Last Admin: 08/15/17 22:51 Dose: 1 drop Metoprolol Succinate (Toprol Xl) 12.5 mg PO DAILY [facility] Last Admin: 08/16/17 09:24 Dose: 12.5 mg Non-Formulary Medication (Rosuvastatin [Crestor]) 20 mg PO BEDTIME [facility] Last Admin: 08/15/17 22:33 Dose: Non-Formulary Medication (Timolol Maleate [Istalol]) 1 drop EYERT BID [facility] Last Admin: 08/16/17 08:25 Dose: Admin: 08/15/17 22:34 Dose: Ondansetron HCl (Zofran) 4 mg IVPUSH Q8H PRN PRN Reason: Nausea/Vomiting Oxycodone/Acetaminophen (Percocet 325-5 Mg) 1 tab PO Q8H PRN PRN Reason: Pain Pantoprazole Sodium (Protonix Iv) 40 mg IVPUSH DAILY [facility] Last Admin: 08/16/17 08:15 Dose: 40 mg Potassium Chloride (Klor-Con M20) 20 meq PO DAILY [facility] Last Admin: 08/16/17 09:23 Dose: 20 meq - Assessment Assessment (Free Text/Narrative):: making good progress; start clear liquid this am, if jinny, will advance to full tomorrow, and home on full liquid tomorrow - Plan Plan (Free Text/Narrative):: making good progress; start clear liquid this am, if jinny, will advance to full tomorrow, and home on full liquid tomorrow
[2017-08-16] MEDS ORDERED: Rosuvastatin 10 MG Tab PO SCH (11:42)
[2017-08-16] MEDS: Benzonatate 100 MG Cap PO PRN ×2 (12:02→20:18)
[2017-08-16] MEDS: Latanoprost 0.005% Ophth Soln 2.5 ML Bottle EYEBOTH SCH (20:19)
[2017-08-17] MEDS: Insulin Aspart 100 Units/ML 3 ML Pen SUBCUT SCH ×2 (00:34→06:22)
[2017-08-17] MEDS: Lactated Ringers 1,000 ML IV SCH (06:20)
[2017-08-17] MEDS: Furosemide 20 MG Tab PO SCH (09:25)
[2017-08-17] MEDS: Potassium Chloride 20 MEQ Tab.ER PO SCH (09:25)
[2017-08-17] MEDS: Pantoprazole 40 MG Vial IVPUSH SCH (09:25)
[2017-08-17] MEDS: Metoprolol Succinate 25 MG Tab.ER PO SCH (09:25)
[2017-08-17 09:26] VITALS: BP 127/70
[2017-08-17] MEDS: TIMOLOL MALEATE EYERT SCH (09:26)
--- NOTE | 2017-08-17 09:51 | PCM.DCSUM1 ---
Discharge Summary - Hospital Course Free Text/Narrative:: admitted via ed for abd pain; ct > acute cholecystitis w subtle gallstones; hospital course; conservative managment to cool down gallbladder, iv abx and liquid diet; pt responded well, pain resolved, afebribe, wbc came down; pt home on full liquid diet, continue low fat or no fat diet; pt has appt w surgery in [place] for urinary bladder procedure; may benefit to have 2 surgery in 1, possible; if not, fu in my office 2 - 3 mos; pt is obese, there is a possiblitiy , pt may need to have his gb taken out in [place] in the future; pt voiced understanding; upon discharge, pt tolerated full liquid diet, no pain, afeb, vss. abd exam benign - Discharge Data Discharge Date: 08/17/17 Discharge Disposition: Home, Self-Care 01 Condition: Stable - Patient Summary/Data Hospital Course: admitted via ed for abd pain; ct > acute cholecystitis w subtle gallstones; hospital course; conservative managment to cool down gallbladder, iv abx and liquid diet; pt responded well, pain resolved, afebribe, wbc came down; pt home on full liquid diet, continue low fat or no fat diet; pt has appt w surgery in [place] for urinary bladder procedure; may benefit to have 2 surgery in 1, possible; if not, fu in my office 2 - 3 mos; pt is obese, there is a possiblitiy , pt may need to have his gb taken out in [place] in the future; pt voiced understanding; upon discharge, pt tolerated full liquid diet, no pain, afeb, vss. abd exam benign - Patient Instructions Diet, Other: low fat or no fat diet, full liquid X 48 hrs Activity: As Tolerated Driving: Do Not Drive Showering/Bathing: May Shower Notify Provider of: Fever, Nausea and/or Vomiting - Discharge Plan Home Medications: Home Meds Latanoprost [Xalatan 0.005% Ophth Soln] 1 drop EYEBOTH BEDTIME 12/26/14 [History ] Rosuvastatin [Crestor] 20 mg PO BEDTIME 12/26/14 [History] metFORMIN HCl [Metformin HCl] 500 mg PO BID 12/26/14 [History] Furosemide 20 mg PO DAILY 07/18/17 [History] Metoprolol Succinate [Toprol XL] 12.5 mg PO DAILY 07/18/17 [History] Potassium Chloride 20 meq PO DAILY 07/18/17 [History] Timolol Maleate [Istalol] 1 drop EYERT DAILY 07/18/17 [History] Patient Handouts: Cholecystitis Forms: ED Department Discharge Referrals: Awais Beth MD [Primary Care Provider] - Kd Luna MD [Physician] - - Discharge Summary/Plan Comment DC Time >30 min.: Yes - Patient Data Vitals - Most Recent: Last Vital Signs Temp 97.9 F 08/17/17 08:00 Pulse 70 08/17/17 09:25 Resp 16 08/17/17 08:00 BP 127/70 08/17/17 09:25 Pulse Ox 94 L 08/17/17 08:00 Weight - Most Recent: 240 lb 11.916 oz I&O - Last 24 hours: Intake & Output 08/16/17 08/17/17 08/17/17 22:59 06:59 14:59 Intake Total 2196 Output Total 700 Balance 1496 Med Orders - Current: Current Medications Benzonatate (Tessalon Perles) 100 mg PO TID PRN PRN Reason: Cough Last Admin: 08/16/17 20:18 Dose: 100 mg Furosemide (Lasix) 20 mg PO DAILY [facility] Last Admin: 08/17/17 09:25 Dose: 20 mg Lactated Ringer's (Ringers, Lactated) 1,000 mls @ 100 mls/hr IV ASDIRECTED [facility] Last Admin: 08/17/17 06:20 Dose: 100 mls/hr Insulin Aspart (Novolog) 0 unit SUBCUT Q6H [facility]; Protocol Last Admin: 08/17/17 06:22 Dose: Not Given Latanoprost (Xalatan 0.005% Ophth Soln) 0 ml EYEBOTH BEDTIME [facility] Last Admin: 08/16/17 20:19 Dose: 1 drop Metoprolol Succinate (Toprol Xl) 12.5 mg PO DAILY [facility] Last Admin: 08/17/17 09:25 Dose: 12.5 mg Ondansetron HCl (Zofran) 4 mg IVPUSH Q8H PRN PRN Reason: Nausea/Vomiting Oxycodone/Acetaminophen (Percocet 325-5 Mg) 1 tab PO Q8H PRN PRN Reason: Pain Pantoprazole Sodium (Protonix Iv) 40 mg IVPUSH DAILY [facility] Last Admin: 08/17/17 09:25 Dose: 40 mg Timolol Maleate [ (Istalol] 1 Drop) 0 each EYERT BID [facility] Last Admin: 08/17/17 09:26 Dose: 1 each Potassium Chloride (Klor-Con M20) 20 meq PO DAILY [facility] Last Admin: 08/17/17 09:25 Dose: 20 meq Rosuvastatin Calcium (Crestor) 20 mg PO BEDTIME [facility] Last Admin: 08/16/17 20:18 Dose: 20 mg Discontinued Medications Bisacodyl (Dulcolax) 10 mg RECTAL ONETIME ONE Stop: 08/15/17 19:57 Last Admin: 08/15/17 22:25 Dose: Not Given Bisacodyl (Dulcolax) 10 mg RECTAL ONETIME ONE Stop: 08/15/17 22:16 Last Admin: 08/15/17 22:21 Dose: 10 mg Lactated Ringer's (Ringers, Lactated) 1,000 mls @ 125 mls/hr IV .BOLUS ONE Stop: 08/16/17 02:32 Last Admin: 08/15/17 18:37 Dose: 125 mls/hr Levofloxacin/Dextrose 750 mg/ (Premix) 150 mls @ 100 mls/hr IV ONETIME ONE Stop: 08/15/17 21:19 Last Admin: 08/15/17 20:11 Dose: 100 mls/hr Iopamidol (Isovue Multipack-370 (76%)) 75 ml IVPUSH ONETIME STA Stop: 08/15/17 16:53 Last Admin: 08/15/17 16:53 Dose: 75 ml Metformin HCl (Glucophage) 500 mg PO BID [facility] Last Admin: 08/15/17 22:33 Dose: Not Given Non-Formulary Medication (Rosuvastatin [Crestor]) 20 mg PO BEDTIME [facility] Last Admin: 08/15/17 22:33 Dose: Not Given Non-Formulary Medication (Timolol Maleate [Istalol]) 1 drop EYERT BID [facility] Last Admin: 08/16/17 08:25 Dose: Not Given Potassium Chloride (Klor-Con) 20 meq PO DAILY [facility]
--- NOTE | 2017-08-18 09:17 | CT ---
EXAM DATE: 08/15/17 PATIENT'S AGE: 72 Patient: LIZZETTE SHEETS Facility: [place], [place] Site . Site : 1945 Study: CT Abdomen/Pelvis [id number] 5:41:33 PM Ordering Physician: Doctor Fuentes Final Report: INDICATION: Abdominal pain and distension. Recent colonoscopy. TECHNIQUE: CT abdomen and pelvis acquired with IV contrast. COMPARISON: August 09, 2017. FINDINGS: Lower chest: Stable noncalcified 5 mm left lower lobe nodule. Mild bibasilar atelectasis. Liver: Unremarkable. Normal in size and attenuation. No masses. Gallbladder and bile ducts: There is gallbladder wall edema. Subtle dependent gallstones are present. No biliary dilatation. Pancreas: Unremarkable. No mass or inflammation. Spleen: Unremarkable. Normal in size. No masses. Adrenal glands: Unremarkable. No nodules. Kidneys: Unremarkable. No masses, stones, or hydronephrosis. GI tract: Unremarkable. Normal in caliber. No sign of mass or inflammation. Vasculature: Unremarkable. Lymph nodes: No lymphadenopathy. Omentum/Peritoneum/Abdominal Wall: Unremarkable. No sign of mass or infiltration. No free air or significant free fluid. Pelvis: 2.2 cm soft tissue mass with punctate calcifications in the bladder is unchanged. Remainder of the pelvis is unremarkable. Bones: Unremarkable for age. IMPRESSION: 1. There is new gallbladder wall edema and inflammation consistent with cholecystitis. Small subtle gallbladder stones are present. No biliary dilatation. 2. Stable bladder mass. 3. Stable 5 mm left lower lobe pulmonary nodule. Please note that all CT scans at this facility use dose modulation, iterative reconstruction, and/or weight-based dosing when appropriate to reduce radiation dose to as low as reasonably achievable. Dictated by Fritz Sharma MD @ Aug 15 2017 5:50PM (Electronic Signature) Report Signed by Proxy. [facility]
--- NOTE | 2017-08-18 13:47 | HP ---
DATE OF : 1945 PRIMARY CARE PHYSICIAN: Awais Beth M.D. This is a consult from the emergency room doctor, Dr. Guzmán. REASON FOR CONSULTATION: Question acute cholecystitis. HISTORY OF PRESENT ILLNESS: The patient is a 72-year-old obese gentleman, who had a colonoscopy done one week ago with Dr. Vizcaino and had a cystoscopy for suspicious bladder mass this morning in [place]. Carries a diagnosis of bladder cancer and seen in the emergency room for abdominal pain. The patient remarked the pain was 8 last night while he was n.p.o. for the procedure this morning and currently his abdominal pain is 2 or none, that is the word from the tiger's mouth. Denied fever, chills, or diarrhea. PAST MEDICAL HISTORY: Significant for coronary artery disease with cardiac stent placement and HI 2001. The patient has hypertension and is diabetic and obese with a BMI of 36, history of hemodialysis 3 years ago for acute kidney injury and history of alcohol. PAST SURGICAL HISTORY: Cardiac stent placement, colonoscopy, and dialysis catheter placement. ALLERGIES: Refer to nursing for details. MEDICATIONS: Refer to nursing for details. FAMILY HISTORY: Noncontributory. REVIEW OF SYSTEMS: Same as history of present illness. PHYSICAL EXAMINATION: GENERAL: A morbidly obese gentleman, resting comfortably on stretcher. HEENT: Normocephalic and atraumatic. Sclerae anicteric. LUNGS: Clear to auscultation. HEART: Regular rate and rhythm. ABDOMEN: Protuberant, obese, and minimal tenderness in the right upper quadrant. LABORATORY DATA: Upon consultation, white count is 11, H and H are 13 and 40, and platelet of 242,000. BUN is 19, creatinine is 1.4, glucose 111, amylase is 42, lipase is 362, total bilirubin is 0.5. CAT scan result, some gallstone and new gallbladder wall edema and inflammation. No biliary dilatation. No pericholecystic fluid mentioned. IMPRESSION: Gallbladder pain has gone from 8 to 2 or none, and with the patient's current situation, he is not a good candidate for surgery with coronary artery disease and obese and a hot gallbladder. We will admit for observation and IV antibiotic, cool down the gallbladder, and possible surgery in the future. Especially since the patient's BMI is 36 and because he is more obese in a gynoid fashion, in other words, he is more obese at the abdomen, this makes surgery more challenging. Plan has been discussed with family, and family agrees to admit for observation, and there may be a small chance, if cool down of gallbladder dosen't work, then the patient may need urgent surgery. Family is totally aware. LEVON SALAS /[id number]
== END 2017-08-17 10:50 | disposition home or self-care (01) ==
LOC: MW.ED 14:43 → MW.MS 19:57
PROVIDERS: ADMIT Surgery; ATTEND Surgery
DX: K80.10 Calculus of gallbladder with chronic cholecystitis without obstruction (principal); I10 Essential (primary) hypertension; E11.9 Type 2 diabetes mellitus without complications; I25.10 Atherosclerotic heart disease of native coronary artery without angina pectoris; E66.9 Obesity, unspecified; Z79.84 Long term (current) use of oral hypoglycemic drugs; Z79.899 Other long term (current) drug therapy; Z68.36 Body mass index [BMI] 36.0-36.9, adult; Z95.5 Presence of coronary angioplasty implant and graft; Z99.2 Dependence on renal dialysis; Z88.8 Allergy status to other drugs, medicaments and biological substances
CPT/HCPCS: 36415; 74177; 80053; 82150; 83690; 85025; 93005; 96365; 96366; 96368; 99285; A9270; C9113; J1815; J1956; J7120; Q9967; 82962

== ENCOUNTER 2017-11-02 18:41 | Emergency (ER) | payer MEDICARE, BC ==
[2017-11-02 18:53] VITALS: BP 137/83
[2017-11-02] MEDS ORDERED: Proparacaine 0.5% Ophth Soln 15 ML Bottle EYELF ONE (19:02)
--- NOTE | 2017-11-02 19:16 | EDM.PDOC ---
ED HPI GENERAL MEDICAL PROBLEM - General Chief Complaint: Eye Problems Stated Complaint: PIECE OF WOOD TO LEFT EYE Time Seen by Provider: 11/02/17 18:51 Source of Information: Reports: Patient History Limitations: Reports: No Limitations - History of Present Illness INITIAL COMMENTS - FREE TEXT/NARRATIVE: HISTORY AND PHYSICAL: [] 72-year-old male presenting with suspected sawdust to his left eye History of Present Illness: []Patient was sanding a board and felt something in his eye Patient has gallbladder out 5 days ago He has history of glaucoma and sees Dr. Santos Review of Systems: As per history of present illness and below otherwise all systems reviewed and negative. Past medical history: As per history of present illness and as reviewed below otherwise noncontributory. Surgical history: As per history of present illness and as reviewed below otherwise noncontributory. Social history: No reported history of drug or alcohol abuse. Family history: As per history of present illness and as reviewed below otherwise noncontributory. Physical exam: Alert pleasant gentleman slightly hard of hearing. Answering questions appropriately in full sentences without any shortness of breath HEENT: Atraumatic, normocehpalic, pupils reactive, negative for conjunctival pallor or scleral icterus, mucous membranes moist, throat clear, neck supple, nontender, trachea midline. Erythema noted to the entire right eye mild edema is present Lungs: Clear to auscultation, breath sounds equal bilaterally, chest non tender. Heart: S1S2, regular, negative for clicks, rubs, or JVD. Abdomen: Soft, nondistended, nontender. Negative for masses or hepatossplenmegaly. Negative for costovertebral tenderness. Pelvis: Stable nontender. Genitourinary: Deferred. Rectal: Deferred Extremities: Atraumatic, negative for cords or calf pain. Neurovascular unremarkable. Neuro: Awake, alert, oriented. Cranial nerves II through XII unremarkable. Cerebellum unremarkable. Motor and sensory unremarkable throughout. Exam nonfocal. Proparacaine drops instilled 2 then fluorescein strip and a Wood's lamp was utilized no corneal abrasions noted. Small amount of white material was evacuated with saline flushes. Proparacaine drops instilled post procedure Diagnostics: []Arcos lamp Fluoroscin strip irrigation of eye Therapeutics: []Proparacaine drops Impression: []Foreign body to left eye /removed Plan: []Discharge Follow-up with your eye doctor this week evaluation Definitive disposition and diagnosis as appropriate pending reevaluation and review of above. Onset: Today, Sudden Duration: Minutes:, Getting Worse Location: Reports: Face Quality: Reports: Burning Severity: Moderate Improves with: Reports: None Worsens with: Reports: None left eye Pain Score (Numeric/FACES): 3 - Related Data Allergies Allergy/AdvReac Type Severity Reaction Status Date / Time meloxicam Allergy Cannot Verified 11/02/17 18:48 Remember Home Meds: Home Meds Latanoprost [Xalatan 0.005% Ophth Soln] 1 drop EYEBOTH BEDTIME 12/26/14 [History ] Rosuvastatin [Crestor] 20 mg PO BEDTIME 12/26/14 [History] metFORMIN HCl [Metformin HCl] 500 mg PO BID 12/26/14 [History] Furosemide 20 mg PO DAILY 07/18/17 [History] Metoprolol Succinate [Toprol XL] 12.5 mg PO DAILY 07/18/17 [History] Potassium Chloride 20 meq PO DAILY 07/18/17 [History] Timolol Maleate [Istalol] 1 drop EYERT DAILY 07/18/17 [History] Past Medical History HEENT History: Reports: Cataract, Other (See Below) Other HEENT History: wears glasses, upper denture Cardiovascular History: Reports: CAD, High Cholesterol, Hypertension, [place], Stents Other Cardiovascular History: TN in 2001 with stent placed x1 LAD Respiratory History: Reports: Other (See Below) Other Respiratory History: hx reactive airwary disease Gastrointestinal History: Reports: Colon Polyp Genitourinary History: Reports: Other (See Below) Other Genitourinary History: acute kidney injury due to NSAID, on hemo dialysis x3 months in 2014 Musculoskeletal History: Reports: Fracture, Osteoarthritis Other Musculoskeletal History: hx fx leg Neurological History: Reports: None Psychiatric History: Reports: None Endocrine/Metabolic History: Reports: Diabetes, Type II, Obesity/BMI 30+ Hematologic History: Reports: None Immunologic History: Reports: None Oncologic (Cancer) History: Reports: Bladder Dermatologic History: Reports: None - Infectious Disease History Infectious Disease History: Reports: Chicken Pox, Measles, Mumps - Past Surgical History Head Surgeries/Procedures: Reports: None HEENT Surgical History: Reports: None Cardiovascular Surgical History: Reports: Coronary Artery Stent Respiratory Surgical History: Reports: None GI Surgical History: Reports: Appendectomy, Cholecystectomy, Colonoscopy Male Surgical History: Reports: Other (See Below) Other Male Surgeries/Procedures: hemo dialysis access catheter placement and removal in 2015 Endocrine Surgical History: Reports: None Neurological Surgical History: Reports: None Musculoskeletal Surgical History: Reports: Knee Replacement Other Musculoskeletal Surgeries/Procedures:: hx rt knee replacement Oncologic Surgical History: Reports: None Dermatological Surgical History: Reports: None Social & Family History - Family History Family Medical History: Noncontributory - Tobacco Use Smoking Status *Q: Former Smoker Used Tobacco, but Quit: Yes Month/Year Tobacco Last Used: 35 - Caffeine Use Caffeine Use: Reports: None - Recreational Drug Use Recreational Drug Use: No ED ROS GENERAL - Review of Systems Review Of Systems: ROS reveals no pertinent complaints other than HPI. ED EXAM GENERAL W FULL EYE - Physical Exam Exam: See Below (see dictation) Course - Vital Signs Last Recorded V/S: Last Vital Signs Temp 36.2 C 11/02/17 18:49 Pulse 76 11/02/17 18:49 Resp 18 11/02/17 18:49 BP 137/83 11/02/17 18:49 Pulse Ox 93 L 11/02/17 18:49 - Orders/Labs/Meds Meds: Medications Discontinued Medications Generic Name Dose Route Start Last Admin Trade Name María PRN Reason Stop Dose Admin Proparacaine HCl 2 ml 11/02/17 19:02 11/02/17 19:05 Proparacaine 0.5% Ophth Soln EYELF 11/02/17 19:03 2 drop ONETIME ONE Administration Departure - Departure Time of Disposition: 19:33 Disposition: Home, Self-Care 01 Condition: Good Clinical Impression: Foreign body of left eyelid - Discharge Information Instructions: Eye Foreign Body, [id number] Referrals: Awais Beth MD [Primary Care Provider] - Forms: ED Department Discharge Additional Instructions: The following information is given to patients seen in the emergency department who are being discharged to home. This information is to outline your options for follow-up care. We provide all patients seen in our emergency department with a follow-up referral. The need for follow-up, as well as the timing and circumstances, are variable depending upon the specifics of your emergency department visit. If you don't have a primary care physician on staff, we will provide you with a referral. We always advise you to contact your personal physician following an emergency department visit to inform them of the circumstance of the visit and for follow-up with them and/or the need for any referrals to a consulting specialist. The emergency department will also refer you to a specialist when appropriate. This referral assures that you have the opportunity for followup care with a specialist. All of these measure are taken in an effort to provide you with optimal care, which includes your followup. Under all circumstances we always encourage you to contact your private physician who remains a resource for coordinating your care. When calling for followup care, please make the office aware that this follow-up is from your recent emergency room visit. If for any reason you are refused follow-up, please contact the [facility] emergency department at and asked to speak to the emergency department charge nurse. In the next 2 days and watch to see your eye doctor please call tomorrow morning for an appointment
[2017-11-02] MEDS ORDERED: Erythromycin Base 0.5% Ophth Oint 1 GM Tube EYEBOTH ONE (19:38)
== END 2017-11-02 19:45 | disposition home or self-care (01) ==
LOC: MW.ED 18:41
DX: T15.12XA Foreign body in conjunctival sac, left eye, initial encounter (principal); E11.9 Type 2 diabetes mellitus without complications; I10 Essential (primary) hypertension; I25.10 Atherosclerotic heart disease of native coronary artery without angina pectoris; I25.2 Old myocardial infarction; W45.8XXA Other foreign body or object entering through skin, initial encounter; Z88.8 Allergy status to other drugs, medicaments and biological substances; Z79.899 Other long term (current) drug therapy; Z79.84 Long term (current) use of oral hypoglycemic drugs; Z87.891 Personal history of nicotine dependence
CPT/HCPCS: 99283; A9270

== ENCOUNTER 2019-01-23 15:08 | Emergency (ER) | payer MEDICARE, BC ==
[2019-01-23] MEDS ORDERED: Ondansetron 4 MG/2 ML SDV IVPUSH ONE (15:25)
[2019-01-23] MEDS ORDERED: Sodium Chloride 0.9% 2.5 ML Syringe FLUSH PRN (15:25)
[2019-01-23] MEDS ORDERED: Sodium Chloride 0.9% 10 ML Syringe FLUSH PRN (15:25)
[2019-01-23] MEDS ORDERED: Morphine 4 MG/ML Syringe IVPUSH ONE (15:25)
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
[2019-01-23 16:19] LABS: CARBON DIOXIDE,CO2 23.6 mmol/L (21.0-32.0); POTASSIUM,K 3.9 mmol/L (3.5-5.1)
--- NOTE | 2019-01-23 16:37 | CT ---
Indication: Trauma. Technique: Multiple contiguous axial images were obtained from the thoracic inlet through the upper abdomen without intravenous contrast enhancement. Please note that all CT scans at this facility use dose modulation, iterative reconstruction, and/or weight-based dosing when appropriate to reduce radiation dose to as low as reasonably achievable. Comparison: None Findings: No mediastinal or axillary lymphadenopathy is identified. The heart is normal in size. Coronary artery calcifications are identified. The aorta is normal in caliber. The unenhanced liver, spleen, pancreas, adrenals, and kidneys are normal. No intrahepatic biliary ductal dilatation is identified. Postsurgical changes of a cholecystectomy are identified. Mild emphysematous changes the lungs are identified. No infiltrate, pleural effusion, or pneumothorax is identified. Bilateral atelectasis is identified. Degenerative changes of the spine are identified. No lytic or blastic lesions are seen. Both femoral heads are seated within the glenoid. The scapula are intact. The sternum is intact. Fractures of the right 3rd, 4th, 5th, 6th, 7th anterior right ribs are identified. These are essentially nondisplaced rib fractures. No other definite rib fractures are identified. Impression: Multiple right-sided rib fractures without evidence of pneumothorax. Please note that all CT scans at this facility use dose modulation, iterative reconstruction, and/or weight-based dosing when appropriate to reduce radiation dose to as low as reasonably achievable. Dictated by Ariane Thomas MD @ Jan 23 2019 4:31PM Signed by Dr. Ariane Thomas @ Jan 23 2019 4:35PM
--- NOTE | 2019-01-23 16:43 | CT ---
INDICATION: Trauma. Fell a 0 today. Pain in right ribs. TECHNIQUE: CT of the abdomen and pelvis performed without oral or IV contrast. COMPARISON: CT abdomen and pelvis 12/15/2017. FINDINGS: Moderate osteopenia. Multiple mildly displaced acute fractures right rib fractures best seen on today`s chest CT including mildly displaced acute fractures of the right 3rd through 7th anterior and lateral ribs. Age indeterminate fracture involving the right 9th lateral rib. Please see today`s chest CT for further discussion of the rib fractures. Patchy ground-glass opacity in the mid and lower lungs could be inflammatory or related to atelectasis. Component of contusion thought to be less likely. Small stable sclerotic focus involving the left iliac bone. Evaluation for posttraumatic parenchymal organ injury in the abdomen is limited without IV contrast. No such abnormalities are seen. Interval cholecystectomy. Coronary artery calcification. Small cyst in the left kidney stable. Colonic diverticulosis. Small uncalcified nodule in the left lower lobe on image 3 is unchanged. The partially calcified mass in the urinary bladder is not definitively seen today. Clinical correlation recommended as to whether this mass as definitively been treated excised. [place] anomaly along the anterior to the bladder. Remainder negative. IMPRESSION: 1. No acute disease in the abdomen. 2. Multiple right anterior and lateral rib fractures including a acute right 3rd through 7th rib fractures better seen on today`s chest CT. 3. Interval cholecystectomy. 4. Soft tissue mass in the urinary bladder described previously is not definitively seen today. Clinical correlation is recommended to determine if this mass has been resected or treated. 5. Small nodule left lower lobe unchanged. 6. Moderate ground-glass opacity in the mid and lower lungs could be inflammatory, or related atelectasis. Component of pulmonary contusion less likely. Other findings as above. Please note that all CT scans at this facility use dose modulation, iterative reconstruction, and/or weight-based dosing when appropriate to reduce radiation dose to as low as reasonably achievable. Dictated by Brett Philippe MD @ Jan 23 2019 4:40PM Signed by Dr. Brett Philippe @ Jan 23 2019 4:42PM
[2019-01-23 17:45] VITALS: BP 136/79; PULSE 77
== END 2019-01-23 17:40 ==
LOC: MW.ED 15:08
DX: S22.41XA Multiple fractures of ribs, right side, initial encounter for closed fracture (principal); E11.9 Type 2 diabetes mellitus without complications; I10 Essential (primary) hypertension; E78.00 Pure hypercholesterolemia, unspecified; I25.10 Atherosclerotic heart disease of native coronary artery without angina pectoris; I25.2 Old myocardial infarction; Z79.84 Long term (current) use of oral hypoglycemic drugs; Z79.899 Other long term (current) drug therapy; Z88.1 Allergy status to other antibiotic agents; Z87.891 Personal history of nicotine dependence; V94.0XXA Hitting object or bottom of body of water due to fall from watercraft, initial encounter
CPT/HCPCS: 36415; 71250; 74176; 80053; 85025; 96374; 96375; 99285; J2270; J2405

== ENCOUNTER 2020-07-22 17:28 | Emergency (ER) | payer MEDICARE, BC ==
--- NOTE | 2020-07-22 17:53 | EDM.PDOC ---
<David Elena - Last Filed: 07/22/20 20:37> ED HPI GENERAL MEDICAL PROBLEM - General Chief Complaint: Abdominal Pain Stated Complaint: RECENT COVID VACCINE, VOMITTING Time Seen by Provider: 07/22/20 17:33 - Related Data Allergies Allergy/AdvReac Type Severity Reaction Status Date / Time meloxicam Allergy Cannot Verified 07/22/20 17:47 Remember Home Meds: Home Meds Aspirin 81 mg PO DAILY 07/22/20 [History] Clopidogrel [Plavix] 75 mg PO DAILY 07/22/20 [History] Furosemide 40 mg PO DAILY 07/22/20 [History] Isosorbide Mononitrate [Imdur] 30 mg PO DAILY 07/22/20 [History] Latanoprost [Xalatan 0.005% Ophth Soln] 1 dose EYEBOTH ASDIRECTED 07/22/20 [History] Metoprolol Succinate [Toprol XL] 25 mg PO DAILY 07/22/20 [History] Ondansetron [Zofran ODT] 4 mg PO Q6H PRN #10 tab.dis 07/22/20 [Rx] Potassium Acetate 20 mg PO DAILY 07/22/20 [History] Rosuvastatin [Crestor] 20 mg PO DAILY 07/22/20 [History] Timolol Maleate 1 dose EYEBOTH ASDIRECTED 07/22/20 [History] metFORMIN [Glucophage XR] 500 mg PO DAILY 07/22/20 [History] Course - Re-Assessments/Exams Free Text/Narrative Re-Assessment/Exam: 07/22/20 19:00 Patient care transitioned from Dr. Pemberton pending Covid test. We will follow up results and disposition accordingly. 07/22/20 19:16 D-dimer mildly elevated at .80; age adjusted this is slightly above the cutoff for normal. patient's GFR does not tolerate a CT scan at this time although after hydration he may be able to get a scan later. 07/22/20 20:37 Patient's heart rate is improved to high 90s. His oxygen saturation is in the low 90s which through chart searching appears to be the patient's baseline, he is also laying awkwardly in the bed and I suspect that he has some degree of sleep apnea given his weight. Will discharge patient home with strict return precautions. Departure - Departure Time of Disposition: 20:38 Disposition: Home, Self-Care 01 Condition: Good Clinical Impression: Vomiting Qualifiers: Vomiting type: unspecified Vomiting Intractability: non-intractable Nausea presence: with nausea Qualified Code(s): R11.2 - Nausea with vomiting, unspecified - Discharge Information Prescriptions: Ondansetron [Zofran ODT] 4 mg PO Q6H PRN #10 tab.dis PRN Reason: Nausea/Vomiting Instructions: Nausea and Vomiting, Adult, [id number] Referrals: Awais Beth MD [Primary Care Provider] - Forms: ED Department Discharge Additional Instructions: The following information is given to patients seen in the emergency department who are being discharged to home. This information is to outline your options for follow-up care. We provide all patients seen in our emergency department with a follow-up referral. The need for follow-up, as well as the timing and circumstances, are variable depending upon the specifics of your emergency department visit. If you don't have a primary care physician on staff, we will provide you with a referral. We always advise you to contact your personal physician following an emergency department visit to inform them of the circumstance of the visit and for follow-up with them and/or the need for any referrals to a consulting specialist. The emergency department will also refer you to a specialist when appropriate. This referral assures that you have the opportunity for follow-up care with a specialist. All of these measure are taken in an effort to provide you with optimal care, which includes your follow-up. Under all circumstances we always encourage you to contact your private physician who remains a resource for coordinating your care. When calling for follow-up care, please make the office aware that this follow-up is from your recent emergency room visit. If for any reason you are refused follow-up, please contact the [facility] Emergency Department at and asked to speak to the emergency department charge nurse. Please follow up with your primary care physician. If you do not have a primary care physician, see below: [facility] [address] [place] [id number] [address] [facility] [place] [id number] <Miguel A Pemberton - Last Filed: 07/23/20 11:15> ED HPI GENERAL MEDICAL PROBLEM - History of Present Illness INITIAL COMMENTS - FREE TEXT/NARRATIVE: History of present illness: [] The patient feels weak, nauseated, and has vomited. He has chills. He has body aches and especially has abdominal pain. The patient no longer has a gallbladder or appendix. The patient does have a history of COVID-19 injection for vaccination yesterday. Meet sepsis criteria by respiratory rate and pulse rate with a history of chills. Abdominal pain may be a clue to the source. Review of systems: As per history of present illness and below otherwise all systems reviewed and negative. Past medical history: As per history of present illness and as reviewed below otherwise noncontributory. Surgical history: As per history of present illness and as reviewed below otherwise noncontributory. Social history: No reported history of drug or alcohol abuse. Family history: As per history of present illness and as reviewed below otherwise noncontributory. Physical exam: Constitutional - well developed, well-nourished and in no acute distress HEENT - normocephalic, no evidence of trauma - external nose and mouth normal - no mass in neck and no JVD - mucosae moist EYES - full EOM, PERRL, no icterus - no evidence of inflammation, injection, or drainage Respiratory - no respiratory distress, equal bilateral expansion, lungs clear to auscultation and no abnormal lung sounds Cardiovascular - Regular Rhythm with S1 and S2 appreciated and no murmur, gallop or rub. GI - abdomen soft without distension or organomegaly - normal bowel sounds - no guard or rebound Musculoskeletal no gross deformity of long bones or joints - no tenderness, swelling or edema Neurologic - Alert and oriented times four - CN II-XII grossly intact - motor sensory and coordination symmetrically normal Psychiatric - appropriate mood and affect with normal thought content Hematologic - No petechiae or purpura - mucosa appropriate color and sclera not pale - normal nail bed color and refill Integument - no rash or evidence of trauma - normal turgor Diagnostics: [] Therapeutics: [] Impression: [] Plan: [] Definitive disposition and diagnosis as appropriate pending reevaluation and review of above. Abdominal Pain Score (Numeric/FACES): 4 Past Medical History HEENT History: Reports: Cataract, Other (See Below) Other HEENT History: wears glasses, upper denture Cardiovascular History: Reports: CAD, High Cholesterol, Hypertension, GA, Stents Other Cardiovascular History: GA in 2002 with stent placed x1 LAD Respiratory History: Reports: Other (See Below) Other Respiratory History: hx reactive airwary disease Gastrointestinal History: Reports: Colon Polyp Genitourinary History: Reports: Other (See Below) Other Genitourinary History: acute kidney injury due to NSAID, on hemo dialysis x3 months in 2014 Musculoskeletal History: Reports: Fracture, Osteoarthritis Other Musculoskeletal History: hx fx leg Neurological History: Reports: None Psychiatric History: Reports: None Endocrine/Metabolic History: Reports: Diabetes, Type II, Obesity/BMI 30+ Hematologic History: Reports: None Immunologic History: Reports: None Oncologic (Cancer) History: Reports: Bladder Dermatologic History: Reports: None - Infectious Disease History Infectious Disease History: Reports: None - Past Surgical History Head Surgeries/Procedures: Reports: None HEENT Surgical History: Reports: None Cardiovascular Surgical History: Reports: Coronary Artery Stent Respiratory Surgical History: Reports: None GI Surgical History: Reports: Appendectomy, Cholecystectomy, Colonoscopy Male Surgical History: Reports: Other (See Below) Other Male Surgeries/Procedures: hemo dialysis access catheter placement and removal in 2014 Endocrine Surgical History: Reports: None Neurological Surgical History: Reports: None Musculoskeletal Surgical History: Reports: Knee Replacement Other Musculoskeletal Surgeries/Procedures:: hx rt knee replacement Oncologic Surgical History: Reports: None Dermatological Surgical History: Reports: None Social & Family History - Family History Family Medical History: No Pertinent Family History - Caffeine Use Caffeine Use: Reports: None ED ROS GENERAL - Review of Systems Review Of Systems: Comprehensive ROS is negative, except as noted in HPI. ED EXAM, GENERAL - Physical Exam Exam: See Below Free Text/Narrative:: My physical exam as in the HPI #1 Interpretation EKG Interpretation Comments: ED done in 1818 hrs. sinus tachycardia heart rate 101 ID [id number] [place] 0 normal QRS nonspecific T wave abnormalities compared to 08/15/1869 T wave abnormalities are slightly different but there is no obvious acute ischemia impression no evidence of injury or ischemia Course - Vital Signs Text/Narrative:: My turn the patient over to my partner for disposition within the my shift Last Recorded V/S: Last Vital Signs Temp 36.9 C 07/22/20 21:19 Pulse 105 H 07/22/20 21:19 Resp 18 07/22/20 21:19 BP 145/75 H 07/22/20 21:19 Pulse Ox 92 L 07/22/20 21:19 - Orders/Labs/Meds Orders: Active Orders 24 hr Category Date Time Status CULTURE BLOOD [BC] Stat Lab 07/22/20 18:12 Received CULTURE BLOOD [BC] Stat Lab 07/22/20 18:31 Received Blood Culture x2 Reflex Set [OM.PC] Stat Oth 07/22/20 18:01 Ordered Saline Lock Insert [OM.PC] Stat Oth 07/22/20 18:00 Ordered Labs: Laboratory Tests 07/22/20 07/22/20 07/22/20 Range/Units 18:12 18:12 18:12 WBC 7.36 (4.0-11.0) K/uL RBC 4.19 L (4.50-5.90) M/uL Hgb 13.4 (13.0-17.0) g/dL Hct 40.2 (38.0-50.0) % MCV 95.9 (80.0-98.0) fL MCH 32.0 (27.0-32.0) pg MCHC 33.3 (31.0-37.0) g/dL RDW Std Deviation 50.0 (28.0-62.0) fl RDW Coeff of Cathie 14 (11.0-15.0) % Plt Count 161 (150-400) K/uL MPV 10.40 (7.40-12.00) fL Neut % (Auto) 91.7 H (48.0-80.0) % Lymph % (Auto) 3.5 L (16.0-40.0) % [place] % (Auto) 4.6 (0.0-15.0) % Eos % (Auto) 0.1 (0.0-7.0) % Baso % (Auto) 0.1 (0.0-1.5) % Neut # (Auto) 6.7 H (1.4-5.7) K/uL Lymph # (Auto) 0.3 L (0.6-2.4) K/uL [place] # (Auto) 0.3 (0.0-0.8) K/uL Eos # (Auto) 0.0 (0.0-0.7) K/uL Baso # (Auto) 0.0 (0.0-0.1) K/uL Nucleated RBC % 0.0 /100WBC Nucleated RBCs # 0 K/uL D-Dimer, Quantitative (0.0-0.50) mg/L FEU Lactate 1.7 (0.20-2.00) mmol/L Sodium 137 (136-148) mmol/L Potassium 3.5 (3.5-5.1) mmol/L Chloride 98 (98-107) mmol/L Carbon Dioxide 23.4 (21.0-32.0) mmol/L BUN 24 H (7.0-18.0) mg/dL Creatinine 1.7 H (0.8-1.3) mg/dL Est Cr Clr Drug Dosing 36.97 mL/min Estimated GFR (MDRD) 39.4 ml/min Glucose 156 H (74-106) mg/dL Calcium 9.4 (8.5-10.1) mg/dL Total Bilirubin 1.2 H (0.2-1.0) mg/dL AST 20 (15-37) IU/L ALT 21 (14-63) IU/L Alkaline Phosphatase 102 (46-116) U/L B-Natriuretic Peptide (<100) PG/ML Total Protein 8.1 (6.4-8.2) g/dL Albumin 3.7 (3.4-5.0) g/dL Globulin 4.4 H (2.6-4.0) g/dL Albumin/Globulin Ratio 0.8 L (0.9-1.6) Lipase 226 (73-393) U/L Urine Color Urine Appearance Urine pH (5.0-8.0) Ur Specific [place] (1.001-1.035) Urine Protein (NEGATIVE) mg/dL Urine Glucose (UA) (NEGATIVE) mg/dL Urine Ketones (NEGATIVE) mg/dL Urine Occult Blood (NEGATIVE) Urine Nitrite (NEGATIVE) Urine Bilirubin (NEGATIVE) Urine Urobilinogen (<2.0) EU/dL Ur Leukocyte Esterase (NEGATIVE) Urine RBC (0-2/HPF) Urine WBC (0-5/HPF) Ur Epithelial Cells (NONE-FEW) Urine Bacteria (NEGATIVE) SARS-CoV-2 RNA (EDDY) (NEGATIVE) 07/22/20 07/22/20 07/22/20 Range/Units 18:12 18:12 19:02 WBC (4.0-11.0) K/uL RBC (4.50-5.90) M/uL Hgb (13.0-17.0) g/dL Hct (38.0-50.0) % MCV (80.0-98.0) fL MCH (27.0-32.0) pg MCHC (31.0-37.0) g/dL RDW Std Deviation (28.0-62.0) fl RDW Coeff of Cathie (11.0-15.0) % Plt Count (150-400) K/uL MPV (7.40-12.00) fL Neut % (Auto) (48.0-80.0) % Lymph % (Auto) (16.0-40.0) % [place] % (Auto) (0.0-15.0) % Eos % (Auto) (0.0-7.0) % Baso % (Auto) (0.0-1.5) % Neut # (Auto) (1.4-5.7) K/uL Lymph # (Auto) (0.6-2.4) K/uL [place] # (Auto) (0.0-0.8) K/uL Eos # (Auto) (0.0-0.7) K/uL Baso # (Auto) (0.0-0.1) K/uL Nucleated RBC % /100WBC Nucleated RBCs # K/uL D-Dimer, Quantitative 0.80 H (0.0-0.50) mg/L FEU Lactate (0.20-2.00) mmol/L Sodium (136-148) mmol/L Potassium (3.5-5.1) mmol/L Chloride (98-107) mmol/L Carbon Dioxide (21.0-32.0) mmol/L BUN (7.0-18.0) mg/dL Creatinine (0.8-1.3) mg/dL Est Cr Clr Drug Dosing mL/min Estimated GFR (MDRD) ml/min Glucose (74-106) mg/dL Calcium (8.5-10.1) mg/dL Total Bilirubin (0.2-1.0) mg/dL AST (15-37) IU/L ALT (14-63) IU/L Alkaline Phosphatase (46-116) U/L B-Natriuretic Peptide 21 (<100) PG/ML Total Protein (6.4-8.2) g/dL Albumin (3.4-5.0) g/dL Globulin (2.6-4.0) g/dL Albumin/Globulin Ratio (0.9-1.6) Lipase (73-393) U/L Urine Color Urine Appearance Urine pH (5.0-8.0) Ur Specific [place] (1.001-1.035) Urine Protein (NEGATIVE) mg/dL Urine Glucose (UA) (NEGATIVE) mg/dL Urine Ketones (NEGATIVE) mg/dL Urine Occult Blood (NEGATIVE) Urine Nitrite (NEGATIVE) Urine Bilirubin (NEGATIVE) Urine Urobilinogen (<2.0) EU/dL Ur Leukocyte Esterase (NEGATIVE) Urine RBC (0-2/HPF) Urine WBC (0-5/HPF) Ur Epithelial Cells (NONE-FEW) Urine Bacteria (NEGATIVE) SARS-CoV-2 RNA (EDDY) NEGATIVE (NEGATIVE) 07/22/20 Range/Units 19:40 WBC (4.0-11.0) K/uL RBC (4.50-5.90) M/uL Hgb (13.0-17.0) g/dL Hct (38.0-50.0) % MCV (80.0-98.0) fL MCH (27.0-32.0) pg MCHC (31.0-37.0) g/dL RDW Std Deviation (28.0-62.0) fl RDW Coeff of Cathie (11.0-15.0) % Plt Count (150-400) K/uL MPV (7.40-12.00) fL Neut % (Auto) (48.0-80.0) % Lymph % (Auto) (16.0-40.0) % [place] % (Auto) (0.0-15.0) % Eos % (Auto) (0.0-7.0) % Baso % (Auto) (0.0-1.5) % Neut # (Auto) (1.4-5.7) K/uL Lymph # (Auto) (0.6-2.4) K/uL [place] # (Auto) (0.0-0.8) K/uL Eos # (Auto) (0.0-0.7) K/uL Baso # (Auto) (0.0-0.1) K/uL Nucleated RBC % /100WBC Nucleated RBCs # K/uL D-Dimer, Quantitative (0.0-0.50) mg/L FEU Lactate (0.20-2.00) mmol/L Sodium (136-148) mmol/L Potassium (3.5-5.1) mmol/L Chloride (98-107) mmol/L Carbon Dioxide (21.0-32.0) mmol/L BUN (7.0-18.0) mg/dL Creatinine (0.8-1.3) mg/dL Est Cr Clr Drug Dosing mL/min Estimated GFR (MDRD) ml/min Glucose (74-106) mg/dL Calcium (8.5-10.1) mg/dL Total Bilirubin (0.2-1.0) mg/dL AST (15-37) IU/L ALT (14-63) IU/L Alkaline Phosphatase (46-116) U/L B-Natriuretic Peptide (<100) PG/ML Total Protein (6.4-8.2) g/dL Albumin (3.4-5.0) g/dL Globulin (2.6-4.0) g/dL Albumin/Globulin Ratio (0.9-1.6) Lipase (73-393) U/L Urine Color YELLOW Urine Appearance CLEAR Urine pH 7.5 (5.0-8.0) Ur Specific [place] 1.015 (1.001-1.035) Urine Protein 30 H (NEGATIVE) mg/dL Urine Glucose (UA) NEGATIVE (NEGATIVE) mg/dL Urine Ketones NEGATIVE (NEGATIVE) mg/dL Urine Occult Blood NEGATIVE (NEGATIVE) Urine Nitrite NEGATIVE (NEGATIVE) Urine Bilirubin NEGATIVE (NEGATIVE) Urine Urobilinogen 4.0 H (<2.0) EU/dL Ur Leukocyte Esterase NEGATIVE (NEGATIVE) Urine RBC 1-3 (0-2/HPF) Urine WBC 0-2 (0-5/HPF) Ur Epithelial Cells RARE (NONE-FEW) Urine Bacteria RARE (NEGATIVE) SARS-CoV-2 RNA (EDDY) (NEGATIVE) Meds: Medications Discontinued Medications Generic Name Dose Route Start Last Admin Trade Name Freq PRN Reason Stop Dose Admin Sodium Chloride 1,000 mls @ 999 mls/hr 07/22/20 18:04 07/22/20 18:44 Normal Saline IV 07/22/20 19:04 999 mls/hr .Bolus ONE Administration Ceftriaxone Sodium/Dextrose 1 50 mls @ 100 mls/hr 07/22/20 18:07 07/22/20 18:45 gm/ Premix IV 07/22/20 18:36 100 mls/hr ONETIME ONE Administration Ondansetron HCl 4 mg 07/22/20 18:43 07/22/20 18:48 Ondansetron 4 Mg/2 Ml Sdv IVPUSH 07/22/20 18:44 4 mg ONETIME ONE Administration Ondansetron HCl 4 mg 07/22/20 20:40 07/22/20 21:05 Ondansetron 4 Mg/2 Ml Sdv IVPUSH 07/22/20 20:41 4 mg ONETIME ONE Administration Sodium Chloride 10 ml 07/22/20 18:00 07/22/20 19:02 Sodium Chloride 0.9% 10 Ml Syringe FLUSH 10 ml ASDIRECTED PRN Administration Keep Vein Open Sodium Chloride 2.5 ml 07/22/20 18:00 07/22/20 19:02 Sodium Chloride 0.9% 2.5 Ml Syringe FLUSH 2.5 ml ASDIRECTED PRN Administration Keep Vein Open - My Orders Last 24 Hours: My Active Orders 07/22/20 18:00 Saline Lock Insert [OM.PC] Stat 07/22/20 18:01 Blood Culture x2 Reflex Set [OM.PC] Stat 07/22/20 18:12 CULTURE BLOOD [BC] Stat 07/22/20 18:31 CULTURE BLOOD [BC] Stat - Assessment/Plan Last 24 Hours: My Active Orders 07/22/20 18:00 Saline Lock Insert [OM.PC] Stat 07/22/20 18:01 Blood Culture x2 Reflex Set [OM.PC] Stat 07/22/20 18:12 CULTURE BLOOD [BC] Stat 07/22/20 18:31 CULTURE BLOOD [BC] Stat
[2020-07-22] MEDS ORDERED: Sodium Chloride 0.9% 2.5 ML Syringe FLUSH PRN (18:00)
[2020-07-22] MEDS ORDERED: Sodium Chloride 0.9% 10 ML Syringe FLUSH PRN (18:00)
[2020-07-22] MEDS ORDERED: Sodium Chloride 0.9% 1,000 ML IV ONE (18:04)
[2020-07-22] MEDS ORDERED: cefTRIAXone 1 GM in Premix Bag 1 BAG IV ONE (18:07)
--- NOTE | 2020-07-22 18:27 | CR ---
Indication: Chest pain Technique: Chest 1 view Comparison: February 09, 2020 Findings/Impression: Cardiovascular and mediastinum: Heart size and vasculature are normal in caliber and appearance. Mediastinum is within normal limits. Lungs and pleural space: Lungs are clear. No sign of infiltrate or mass. No sign of pleural effusion. No pneumothorax. Bones and soft tissues: No significant findings. Dictated by Anel Woody MD @ Jul 22 2020 6:23PM Signed by Dr. Anel Woody @ Jul 22 2020 6:24PM
[2020-07-22 18:42] LABS: CARBON DIOXIDE,CO2 23.4 mmol/L (21.0-32.0); POTASSIUM,K 3.5 mmol/L (3.5-5.1)
[2020-07-22] MEDS ORDERED: Ondansetron 4 MG/2 ML SDV IVPUSH ONE ×2 (18:43→20:40)
[2020-07-22 21:37] VITALS: BP 145/75; PULSE 105
== END 2020-07-22 21:19 | disposition home or self-care (01) ==
LOC: MW.ED 17:28
DX: R11.2 Nausea with vomiting, unspecified (principal); E11.9 Type 2 diabetes mellitus without complications; E66.9 Obesity, unspecified; M19.90 Unspecified osteoarthritis, unspecified site; I25.10 Atherosclerotic heart disease of native coronary artery without angina pectoris; E78.00 Pure hypercholesterolemia, unspecified; I10 Essential (primary) hypertension; I25.2 Old myocardial infarction; Z95.5 Presence of coronary angioplasty implant and graft; Z88.8 Allergy status to other drugs, medicaments and biological substances; Z79.82 Long term (current) use of aspirin; Z79.02 Long term (current) use of antithrombotics/antiplatelets; Z79.899 Other long term (current) drug therapy; Z79.84 Long term (current) use of oral hypoglycemic drugs; Z20.822 Contact with and (suspected) exposure to COVID-19
CPT/HCPCS: 36415; 71045; 80053; 81001; 83605; 83690; 83880; 85025; 85379; 87040; 93005; 96365; 96375; 96376; 99285; J0696; J2405; J7030; U0002; 93010; 99284

== ENCOUNTER 2021-02-16 15:06 | Emergency (ER) | payer MEDICARE, BC ==
[2021-02-16] MEDS ORDERED: Diphtheria,Pertussis(Acell),Tetanus Vaccine 0.5 ML Syringe IM ONE (16:04)
--- NOTE | 2021-02-16 16:10 | EDM.PDOC ---
ED HPI GENERAL MEDICAL PROBLEM - General Chief Complaint: Upper Extremity Injury/Pain Stated Complaint: CUT FINGER Time Seen by Provider: 02/16/21 15:40 Source of Information: Reports: Patient History Limitations: Reports: No Limitations - History of Present Illness INITIAL COMMENTS - FREE TEXT/NARRATIVE: HISTORY AND PHYSICAL: History of present illness: The patient is a 75-year-old male with history of type 2 diabetes Plavix for an unknown diagnosis, presents to the emergency department for a laceration of his left index finger which he obtained while using a planer while doing some woodwork prior to arrival. The patient applied a pressure bandage but did not clean the area nor did he take any medications prior to arrival. Except for the left index finger laceration the patient is otherwise healthy and has had no complaints. Patient denies any fever, chills, headache, change in vision, syncope or near syncope. Denies any chest pain, back pain, shortness of breath or cough. Denies any abdominal pain, nausea, vomiting, diarrhea, constipation or dysuria. Has not noted any blood in urine or stool. Patient has been eating and drinking appropriately. Review of systems: As per history of present illness and below otherwise all systems reviewed and negative. Past medical history: As per history of present illness and as reviewed below otherwise noncontributo ry. Surgical history: As per history of present illness and as reviewed below otherwise noncontributory. Social history: See social history for further information Family history: As per history of present illness and as reviewed below otherwise noncontributory. Physical exam: General: Well developed and well nourished. Alert and orientated x 3. Nontoxic in appearance and in no acute distress. Vital signs are stable and have been reviewed by me. Nursing notes were reviewed. HEENT: Atraumatic, normocephalic, pupils equal and reactive bilaterally, negative for conjunctival pallor or scleral icterus, mucous membranes moist, TMs normal bilaterally, throat clear, neck supple, nontender, trachea midline. No drooling or trismus noted. No meningeal signs. No hot potato voice noted. Lungs: Clear to auscultation bilaterally. No wheezes, rales, or rhonchi. Chest nontender. Normal work of breathing, no accessory muscles used. Heart: S1S2, regular rate and rhythm without overt murmur, gallops, or rubs. No JVD. No peripheral edema Abdomen: Soft, nondistended, nontender. Normoactive bowel sounds. Negative for masses or costovertebral tenderness. Skin: 2 cm Left distal tip of index finger avulsed. Moderate amount of bleeding. Neurologically intact. Warm, dry. No lesions or rashes noted. Hematologic: No petechiae or purpra. Mucosa appropriate color and normal nail bed color and refill. Extremities: Atraumatic, moves all extremities per self without difficulty or deficits, negative for cords or calf pain. Neurovascular unremarkable. Neuro: Awake, alert, oriented. Cranial nerves II through XII unremarkable. Cerebellum unremarkable. Motor and sensory unremarkable throughout. Exam nonfocal. Psychiatric: Mood and affect are appropriate. Normal thought process. Answering questions appropriately. Notes: *This patient was seen and evaluated during the 2019 SARS-CoV-2 novel coronavirus pandemic period. Community viral transmission is ongoing at time of this encounter and the emergency department is operating under pandemic response procedures. The patient is a 75-year-old male who presents to the emergency department with a avulsion to the distal tip of his left index finger. Sutures are not indicated at this time. As the patient is on Plavix he is continuing to have a moderate amount of bleeding. I used surgical still to stop the bleeding and promote healing. I used a finger tourniquet applied the Surgicel, covered the Surgicel with gauze, and then applied a finger tube dressing. The patient tolerated well. 30 minutes the patient had just a scant amount of breakthrough bleeding. I will discharge him home with instructions to return if the bleeding is starts again. I have talked with the patient about today's findings, in addition to providing specific details for plan of care. Reassessment at the time of disposition demonstrates that the patient is in no acute distress. The patient is stable for discharge, counseling was provided and we discussed in great detail signs and symptoms that would prompt them to return to the Emergency Department. Medication, follow up and supportive care measures were reviewed and discussed. Voices understanding and is agreeable to plan of care. Denies any further questions or concerns at this time. Therapeutics: Surgicel Impression: Left index finger avulsion Plan: 1. You were evaluated today on an emergent basis. Your left index finger was avulsed when you had it in the planer while doing some woodwork today. We were unable to suture the area due to and the skin was totally removed. I used Surgi dana to stop the bleeding and promote healing and covered the wound with a finger dressing. You can change the dressing after 48 hours and dress it daily until the Surgicel falls off. If you notice increased redness or drainage please return to the emergency department or your primary care as this could be a sign of infection. If you have breakthrough bleeding please return to the emergency department. Giving a tetanus vaccination today in the emergency department. 2. You can alternate Tylenol and ibuprofen as needed for pain and fever management. 3. We encourage you to follow up with your primary care provider and/or recommended specialist in the next few days for re-evaluation and further care/management. 4. If your symptoms should worsen, new symptoms develop or any of the signs and symptoms we discussed should arise please return to the emergency room or call [phone] (if needed). Definitive disposition and diagnosis as appropriate pending reevaluation and review of above. - Related Data Allergies Allergy/AdvReac Type Severity Reaction Status Date / Time meloxicam Allergy Cannot Verified 07/22/20 17:47 Remember Home Meds: Home Meds Aspirin 81 mg PO DAILY 07/22/20 [History] Clopidogrel [Plavix] 75 mg PO DAILY 07/22/20 [History] Furosemide 40 mg PO DAILY 07/22/20 [History] Isosorbide Mononitrate [Imdur] 30 mg PO DAILY 07/22/20 [History] Latanoprost [Xalatan 0.005% Ophth Soln] 1 dose EYEBOTH ASDIRECTED 07/22/20 [History] Metoprolol Succinate [Toprol XL] 25 mg PO DAILY 07/22/20 [History] Ondansetron [Zofran ODT] 4 mg PO Q6H PRN #10 tab.dis 07/22/20 [Rx] Potassium Acetate 20 mg PO DAILY 07/22/20 [History] Rosuvastatin [Crestor] 20 mg PO DAILY 07/22/20 [History] Timolol Maleate 1 dose EYEBOTH ASDIRECTED 07/22/20 [History] metFORMIN [Glucophage XR] 500 mg PO DAILY 07/22/20 [History] Past Medical History HEENT History: Reports: Cataract, Other (See Below) Other HEENT History: wears glasses, upper denture Cardiovascular History: Reports: CAD, High Cholesterol, Hypertension, AR, Stents Other Cardiovascular History: AR in 2001 with stent placed x1 LAD. Stent placed 07/2020 Respiratory History: Reports: Other (See Below) Other Respiratory History: hx reactive airwary disease Gastrointestinal History: Reports: Colon Polyp Genitourinary History: Reports: Other (See Below) Other Genitourinary History: acute kidney injury due to NSAID, on hemo dialysis x3 months in 2014 Musculoskeletal History: Reports: Fracture, Osteoarthritis Other Musculoskeletal History: hx fx leg Neurological History: Reports: None Psychiatric History: Reports: None Endocrine/Metabolic History: Reports: Diabetes, Type II, Obesity/BMI 30+ Hematologic History: Reports: None Immunologic History: Reports: None Oncologic (Cancer) History: Reports: Bladder Dermatologic History: Reports: None - Infectious Disease History Infectious Disease History: Reports: None - Past Surgical History Head Surgeries/Procedures: Reports: None HEENT Surgical History: Reports: None Cardiovascular Surgical History: Reports: Coronary Artery Stent Respiratory Surgical History: Reports: None GI Surgical History: Reports: Appendectomy, Cholecystectomy, Colonoscopy Male Surgical History: Reports: Other (See Below) Other Male Surgeries/Procedures: hemo dialysis access catheter placement and removal in 2014 Endocrine Surgical History: Reports: None Neurological Surgical History: Reports: None Musculoskeletal Surgical History: Reports: Knee Replacement Other Musculoskeletal Surgeries/Procedures:: hx rt knee replacement Oncologic Surgical History: Reports: None Dermatological Surgical History: Reports: None Social & Family History - Family History Family Medical History: No Pertinent Family History - Tobacco Use Tobacco Use Status *Q: Never Tobacco User - Caffeine Use Caffeine Use: Reports: Soda - Recreational Drug Use Recreational Drug Use: No Review of Systems - Review of Systems Review Of Systems: Comprehensive ROS is negative, except as noted in HPI. ED EXAM, GENERAL - Physical Exam Exam: See Below (See dictation) ED TRAUMA EXTREMITY PROCEDURES - Laceration/Wound Repair Left Distal Digit - 2nd (Index) Lac/Wound Length In cm: 2 Appearance: Subcutaneous Distal NVT: Neuro & Vascular Intact Skin Prep: Saline Saline Irrigation (cc's): 200 Exploration/Debridement/Repair: Wound Explored, No Foreign Material Found Closed With: Other (Surgicel) Sterile Dressing Applied: Provider Tetanus Status Addressed: Yes Complications: No Course - Vital Signs Last Recorded V/S: Last Vital Signs Temp 98.2 F 02/16/21 15:21 Pulse 79 02/16/21 16:56 Resp 16 10/08/21 16:56 BP 140/86 02/16/21 16:56 Pulse Ox 96 02/16/21 16:56 - Orders/Labs/Meds Meds: Medications Discontinued Medications Generic Name Dose Route Start Last Admin Trade Name María PRN Reason Stop Dose Admin Diphtheria/Tetanus/Acell Pertussis 0.5 ml 02/16/21 16:04 02/16/21 16:50 Diphtheria,Pertussis(Acell),Tetanus Vaccine 0.5 Ml Syringe IM 02/16/21 16:05 0.5 ml .ONCE ONE Administration Lidocaine HCl 5 ml 02/16/21 15:20 02/16/21 15:39 Lidocaine 1% 5 Ml Sdv INJECT 02/16/21 15:21 5 ml ONETIME ONE Administration Departure - Departure Time of Disposition: 16:09 Disposition: Home, Self-Care 01 Condition: Good Clinical Impression: Fingernail avulsion, partial Qualifiers: Encounter type: initial encounter Qualified Code(s): S61.309A - Unspecified open wound of unspecified finger with damage to nail, initial encounter - Discharge Information *PRESCRIPTION DRUG MONITORING PROGRAM REVIEWED*: Not Applicable *COPY OF PRESCRIPTION DRUG MONITORING REPORT IN PATIENT ELSY: Not Applicable Instructions: Nail Avulsion, How to Change Your Wound Dressing, [id number] Referrals: Awais Beth MD [Primary Care Provider] - Forms: ED Department Discharge Additional Instructions: The following information is given to patients seen in the emergency department who are being discharged to home. This information is to outline your options for follow-up care. We provide all patients seen in our emergency department with a follow-up referral. The need for follow-up, as well as the timing and circumstances, are variable depending upon the specifics of your emergency department visit. If you don't have a primary care physician on staff, we will provide you with a referral. We always advise you to contact your personal physician following an emergency department visit to inform them of the circumstance of the visit and for follow-up with them and/or the need for any referrals to a consulting specialist. The emergency department will also refer you to a specialist when appropriate. This referral assures that you have the opportunity for follow-up care with a specialist. All of these measure are taken in an effort to provide you with optimal care, which includes your follow-up. Under all circumstances we always encourage you to contact your private physician who remains a resource for coordinating your care. When calling for follow-up care, please make the office aware that this follow-up is from your recent emergency room visit. If for any reason you are refused follow-up, please contact the [facility] Emergency Department at and asked to speak to the emergency department charge nurse. [facility] - [facility] [address] [place] [id number] [facility] [address] [place] [address] Plan: 1. You were evaluated today on an emergent basis. Your left index finger was avulsed when you had it in the planar while doing some woodwork today. We were unable to suture the area due to and the skin was totally removed. I used S urgicel to stop the bleeding and promote healing and covered the wound with a finger dressing. You can change the dressing after 48 hours and dress it daily until the Surgicel falls off. If you notice increased redness or drainage please return to the emergency department or your primary care as this could be a sign of infection. If you have breakthrough bleeding please return to the emergency department. Giving a tetanus vaccination today in the emergency department. 2. You can alternate Tylenol and ibuprofen as needed for pain and fever management. 3. We encourage you to follow up with your primary care provider and/or recommended specialist in the next few days for re-evaluation and further care/management. 4. If your symptoms should worsen, new symptoms develop or any of the signs and symptoms we discussed should arise please return to the emergency room or call [phone] (if needed).
[2021-02-16 16:56] VITALS: BP 140/86; PULSE 79
== END 2021-02-16 16:58 | disposition home or self-care (01) ==
LOC: MW.ED 15:06
DX: S61.311A Laceration without foreign body of left index finger with damage to nail, initial encounter (principal); E11.9 Type 2 diabetes mellitus without complications; I25.10 Atherosclerotic heart disease of native coronary artery without angina pectoris; E78.00 Pure hypercholesterolemia, unspecified; I10 Essential (primary) hypertension; I25.2 Old myocardial infarction; E66.9 Obesity, unspecified; Z79.02 Long term (current) use of antithrombotics/antiplatelets; Z88.8 Allergy status to other drugs, medicaments and biological substances; Z68.36 Body mass index [BMI] 36.0-36.9, adult; Z79.82 Long term (current) use of aspirin; Z23 Encounter for immunization; W26.8XXA Contact with other sharp object(s), not elsewhere classified, initial encounter; Y99.0 Civilian activity done for income or pay
CPT/HCPCS: 90471; 90715; 99282

== ENCOUNTER 2021-05-01 19:49 | Emergency (ER) | payer MEDICARE, BC ==
--- NOTE | 2021-05-01 20:00 | EDM.PDOC ---
ED HPI GENERAL MEDICAL PROBLEM - General Chief Complaint: Upper Extremity Injury/Pain Stated Complaint: RT SIDE AND SHOULDER PAIN Time Seen by Provider: 05/01/21 19:50 Source of Information: Reports: Patient History Limitations: Reports: No Limitations - History of Present Illness INITIAL COMMENTS - FREE TEXT/NARRATIVE: HISTORY AND PHYSICAL: History of present illness: Patient is a 76-year-old male who presents to the emergency room with complaints of pain under the right clavicle that radiates into the right lateral rib region. He states he was sitting in his recliner when the pain started, describes it as a spasm. He denies any injury, trauma or falls. Patient denies any fever, chills, headache, change in vision, syncope or near syncope. Denies any back pain, shortness of breath or cough. Denies any abdominal pain, nausea, vomiting, diarrhea, constipation or dysuria. Has not noted any blood in urine or stool. Patient has been eating and drinking appropriately. No recent travel or sick contacts. Review of systems: As per history of present illness and below otherwise all systems reviewed and negative. Past medical history: As per history of present illness and as reviewed below otherwise noncontributory. Surgical history: As per history of present illness and as reviewed below otherwise noncontributory. Social history: See social history for further information Family history: As per history of present illness and as reviewed below otherwise noncontributory. Physical exam: General: Well developed and well nourished. Alert and orientated x 3. Nontoxic in appearance and in no acute distress. Vital signs are stable and have been reviewed by me. Nursing notes were reviewed. HEENT: Atraumatic, normocephalic, pupils equal and reactive bilaterally, negative for conjunctival pallor or scleral icterus, mucous membranes moist, nontender, trachea midline. No drooling or trismus noted. No meningeal signs. No hot potato voice noted. Lungs: Clear to auscultation bilaterally. No wheezes, rales, or rhonchi. Chest nontender. Pain is not reproducible. Normal work of breathing, no accessory muscles used. Heart: S1S2, regular rate and rhythm without overt murmur, gallops, or rubs. No JVD. No peripheral edema Abdomen: Soft, obese, nontender. Normoactive bowel sounds. Negative for masses or costovertebral tenderness. Skin: Intact, warm, dry. No lesions or rashes noted. Hematologic: No petechiae or purpra. Mucosa appropriate color and normal nail bed color and refill. Extremities: Atraumatic, moves all extremities per self without difficulty or deficits, negative for cords or calf pain. Neurovascular unremarkable. Neuro: Awake, alert, oriented. Cranial nerves II through XII unremarkable. Cerebellum unremarkable. Motor and sensory unremarkable throughout. Exam nonfocal. Psychiatric: Mood and affect are appropriate. Normal thought process. Answering questions appropriately. Please note that the patient was seen and evaluated during the 2019 SARS-CoV-2 novel coronavirus pandemic period. Community viral transmission is ongoing at time of this encounter and the emergency department is operating under pandemic response procedures. Medical Decision Making: Patient is a 76-year-old male who presents to the emergency room with complaints of right clavicular pain that radiates to the right lateral chest wall. He states he was at rest when the pain started and describes it as a spasm. Patient does grimace every few seconds stating the pain comes and goes. He denies any midsternal or left-sided chest pain. Denies any injury, trauma or falls. With any type of range of motion of the shoulder it does not elicit pain. I am unable to reproduce pain with palpation. Skin is intact without any evidence of zoster. We will do a cardiac work-up due to his health history. He is accompanied by his who is at bedside, will give him a muscle relaxer while waiting for results. Patient's D-dimer and troponin are negative. I did discuss in length about repeating a troponin after 3 hours of onset of symptoms. Patient states he feels much improved and would like to be discharged home. The is agreeable, stating she would bring him back if his pain returns, worsens or new symptoms develop. I have talked with the patient about today's findings, in addition to providing specific details for plan of care. Reassessment at the time of disposition demonstrates that the patient is in no acute distress. The patient is stable for discharge, counseling was provided and we discussed in great detail signs and symptoms that would prompt them to return to the Emergency Department. Medication, follow up and supportive care measures were reviewed and discussed. Voices understanding and is agreeable to plan of care. D enies any further questions or concerns at this time. Diagnostics: CBC, CMP, troponin, EKG, chest x-ray with rib detail Therapeutics: Norflex IM Prescription: Flexeril Impression: Muscle spasm Chest wall pain Plan: 1. You were evaluated today on an emergent basis. Your lab work was within normal limits. CXR shows no rib fracture or infection. Symptoms are consistent with a muscle relaxer. Flexeril has been prescribed, this is a muscle relaxer, may cause drowsiness so do not take it while driving or needing to be functioning outside of the house. 2. You can alternate Tylenol and ibuprofen as needed for pain and fever management. 3. We encourage you to follow up with your primary care provider for re- evaluation and further care/management. 4. If your symptoms should worsen, new symptoms develop or any of the signs and symptoms we discussed should arise please return to the emergency room or call 911 (if needed). Definitive disposition and diagnosis as appropriate pending reevaluation and review of above. - Related Data Allergies Allergy/AdvReac Type Severity Reaction Status Date / Time meloxicam Allergy Cannot Verified 07/22/20 17:47 Remember Home Meds: Home Meds Aspirin 81 mg PO DAILY 07/22/20 [History] Clopidogrel [Plavix] 75 mg PO DAILY 07/22/20 [History] Furosemide 40 mg PO DAILY 07/22/20 [History] Isosorbide Mononitrate [Imdur] 30 mg PO DAILY 07/22/20 [History] Latanoprost [Xalatan 0.005% Ophth Soln] 1 dose EYEBOTH ASDIRECTED 07/22/20 [History] Metoprolol Succinate [Toprol XL] 25 mg PO DAILY 07/22/20 [History] Ondansetron [Zofran ODT] 4 mg PO Q6H PRN #10 tab.dis 07/22/20 [Rx] Potassium Acetate 20 mg PO DAILY 07/22/20 [History] Rosuvastatin [Crestor] 20 mg PO DAILY 07/22/20 [History] Timolol Maleate [Timolol Maleate 0.25% O/S 10 ML] 1 dose EYEBOTH ASDIRECTED 07/22/20 [History] metFORMIN [Glucophage XR] 500 mg PO DAILY 07/22/20 [History] Cyclobenzaprine [Flexeril] 10 mg PO TID PRN #21 tab 05/01/21 [Rx] Past Medical History HEENT History: Reports: Cataract, Other (See Below) Other HEENT History: wears glasses, upper denture Cardiovascular History: Reports: CAD, High Cholesterol, Hypertension, [place], Stents Other Cardiovascular History: [place] in 2001 with stent placed x1 LAD. Stent placed 07/2020 Respiratory History: Reports: Other (See Below) Other Respiratory History: hx reactive airwary disease Gastrointestinal History: Reports: Colon Polyp Genitourinary History: Reports: Other (See Below) Other Genitourinary History: acute kidney injury due to NSAID, on hemo dialysis x3 months in 2014 Musculoskeletal History: Reports: Fracture, Osteoarthritis Other Musculoskeletal History: hx fx leg Neurological History: Reports: None Psychiatric History: Reports: None Endocrine/Metabolic History: Reports: Diabetes, Type II, Obesity/BMI 30+ Hematologic History: Reports: None Immunologic History: Reports: None Oncologic (Cancer) History: Reports: Bladder Dermatologic History: Reports: None - Infectious Disease History Infectious Disease History: Reports: None - Past Surgical History Head Surgeries/Procedures: Reports: None HEENT Surgical History: Reports: None Cardiovascular Surgical History: Reports: Coronary Artery Stent Respiratory Surgical History: Reports: None GI Surgical History: Reports: Appendectomy, Cholecystectomy, Colonoscopy Male Surgical History: Reports: Other (See Below) Other Male Surgeries/Procedures: hemo dialysis access catheter placement and removal in 2014 Endocrine Surgical History: Reports: None Neurological Surgical History: Reports: None Musculoskeletal Surgical History: Reports: Knee Replacement Other Musculoskeletal Surgeries/Procedures:: hx rt knee replacement Oncologic Surgical History: Reports: None Dermatological Surgical History: Reports: None Social & Family History - Family History Family Medical History: No Pertinent Family History - Caffeine Use Caffeine Use: Reports: Soda Review of Systems - Review of Systems Review Of Systems: Comprehensive ROS is negative, except as noted in HPI. ED EXAM, GENERAL - Physical Exam Exam: See Below (See dictation) Course - Vital Signs Last Recorded V/S: Last Vital Signs Temp 97 F 05/01/21 20:02 Pulse 65 05/01/21 21:15 Resp 18 05/01/21 21:15 BP 135/76 05/01/21 21:15 Pulse Ox 94 L 05/01/21 21:15 - Orders/Labs/Meds Orders: Active Orders 24 hr Category Date Time Status Ribs 2V w Chest Rt [CR] Stat Exams 12/21/21 20:03 Ordered Labs: Laboratory Tests 05/01/21 05/01/21 05/01/21 Range/Units 20:25 20:25 20:25 WBC 7.29 (4.0-11.0) K/uL RBC 4.23 L (4.50-5.90) M/uL Hgb 13.4 (13.0-17.0) g/dL Hct 40.6 (38.0-50.0) % MCV 96.0 (80.0-98.0) fL MCH 31.7 (27.0-32.0) pg MCHC 33.0 (31.0-37.0) g/dL RDW Std Deviation 51.7 (28.0-62.0) fl RDW Coeff of Cathie 15 (11.0-15.0) % Plt Count 177 (150-400) K/uL MPV 10.40 (7.40-12.00) fL Neut % (Auto) 72.9 (48.0-80.0) % Lymph % (Auto) 15.2 L (16.0-40.0) % [place] % (Auto) 6.4 (0.0-15.0) % Eos % (Auto) 5.1 (0.0-7.0) % Baso % (Auto) 0.4 (0.0-1.5) % Neut # (Auto) 5.3 (1.4-5.7) K/uL Lymph # (Auto) 1.1 (0.6-2.4) K/uL [place] # (Auto) 0.5 (0.0-0.8) K/uL Eos # (Auto) 0.4 (0.0-0.7) K/uL Baso # (Auto) 0.0 (0.0-0.1) K/uL Nucleated RBC % 0.0 /100WBC Nucleated RBCs # 0 K/uL D-Dimer, Quantitative 0.34 (0.0-0.50) mg/L FEU Sodium 142 (136-148) mmol/L Potassium 4.1 (3.5-5.1) mmol/L Chloride 103 (98-107) mmol/L Carbon Dioxide 28.7 (21.0-32.0) mmol/L BUN 21 H (7.0-18.0) mg/dL Creatinine 1.6 H (0.8-1.3) mg/dL Est Cr Clr Drug Dosing 38.66 mL/min Estimated GFR (MDRD) 42.1 ml/min Glucose 133 H (74-106) mg/dL Calcium 9.4 (8.5-10.1) mg/dL Total Bilirubin 0.5 (0.2-1.0) mg/dL AST 15 (15-37) IU/L ALT 15 (14-63) IU/L Alkaline Phosphatase 112 (46-116) U/L Troponin I < 0.050 (0.000-0.056) ng/mL Total Protein 7.6 (6.4-8.2) g/dL Albumin 3.6 (3.4-5.0) g/dL Globulin 4.0 (2.6-4.0) g/dL Albumin/Globulin Ratio 0.9 (0.9-1.6) Meds: Medications Discontinued Medications Generic Name Dose Route Start Last Admin Trade Name Freq PRN Reason Stop Dose Admin Orphenadrine Citrate 60 mg 05/01/21 20:03 05/01/21 20:12 Orphenadrine 60 Mg/2 Ml Inj IM 05/01/21 20:04 60 mg ONETIME ONE Administration Departure - Departure Time of Disposition: 21:15 Disposition: Home, Self-Care 01 Clinical Impression: Muscle spasm, Chest wall pain - Discharge Information Prescriptions: Cyclobenzaprine [Flexeril] 10 mg PO TID PRN #21 tab PRN Reason: Muscle Spasm Instructions: Muscle Cramps and Spasms, [id number] Referrals: Awais Beth MD [Primary Care Provider] - Forms: ED Department Discharge Additional Instructions: The following information is given to patients seen in the emergency department who are being discharged to home. This information is to outline your options for follow-up care. We provide all patients seen in our emergency department with a follow-up referral. The need for follow-up, as well as the timing and circumstances, are variable depending upon the specifics of your emergency department visit. If you don't have a primary care physician on staff, we will provide you with a referral. We always advise you to contact your personal physician following an emergency department visit to inform them of the circumstance of the visit and for follow-up with them and/or the need for any referrals to a consulting specialist. The emergency department will also refer you to a specialist when appropriate. This referral assures that you have the opportunity for follow-up care with a specialist. All of these measure are taken in an effort to provide you with optimal care, which includes your follow-up. Under all circumstances we always encourage you to contact your private physician who remains a resource for coordinating your care. When calling for follow-up care, please make the office aware that this follow-up is from your recent emergency room visit. If for any reason you are refused follow-up, please contact the [facility] Emergency Department at and asked to speak to the emergency department charge nurse. [facility] [address] [place] [id number] [address] Thank you for choosing the [facility] emergency department in [place] for your medical needs today. It was a pleasure caring for you. Today you were seen in the emergency department for muscle spasm/chest wall pain Your prescription was electronically sent to: [facility] 1. You were evaluated today on an emergent basis. Your lab work was within normal limits. CXR shows no rib fracture or infection. Symptoms are consistent with a muscle relaxer. Flexeril has been prescribed, this is a muscle relaxer, may cause drowsiness so do not take it while driving or needing to be functioning outside of the house. 2. You can alternate Tylenol and ibuprofen as needed for pain and fever management. 3. We encourage you to follow up with your primary care provider for re- evaluation and further care/management. 4. If your symptoms should worsen, new symptoms develop or any of the signs and symptoms we discussed should arise please return to the emergency room or call 911 (if needed). Sepsis Event Note (ED) - Focused Exam Vital Signs: Vital Signs Temp Pulse Resp BP Pulse Ox 05/01/21 21:15 65 18 135/76 94 L 05/01/21 20:02 97 F 71 22 H 145/79 H 95 - My Orders Last 24 Hours: My Active Orders 05/01/21 20:03 Ribs 2V w Chest Rt [CR] Stat - Assessment/Plan Last 24 Hours: My Active Orders 05/01/21 20:03 Ribs 2V w Chest Rt [CR] Stat
[2021-05-01] MEDS ORDERED: Orphenadrine 60 MG/2 ML Inj IM ONE (20:03)
--- NOTE | 2021-05-01 20:08 | PCM.EKG ---
#1 Interpretation EKG Date: 05/01/21 Time: 19:54 Rhythm: NSR Rate (Beats/Min): 68 [place]: Normal P-Wave: Present QRS: Normal ST-T: Normal QT: Normal Comparison: No Change (07/22/20) EKG Interpretation Comments: Sinus Rhythm
[2021-05-01 21:04] LABS: BLOOD UREA NITROGEN,BUN 21 mg/dL (7.0-18.0); CARBON DIOXIDE,CO2 28.7 mmol/L (21.0-32.0); CHLORIDE,CL 103 mmol/L (98-107); GLUCOSE RANDOM 133 mg/dL (74-106); POTASSIUM,K 4.1 mmol/L (3.5-5.1); SODIUM,NA 142 mmol/L (136-148)
[2021-05-01 21:16] VITALS: BP 135/76; PULSE 65
--- NOTE | 2021-05-01 21:41 | CR ---
Indication: Pain along the right ribs. Technique: PA view of the chest. Multiple views of the right ribs. Comparison: None Findings: The heart is normal in size. The lungs are clear. No infiltrate, pleural effusion, or pneumothorax is identified. No displaced right rib fractures are identified. Impression: No displaced right rib fractures. Dictated by Ariane Thomas MD @ 05/01/2021 9:41:18 PM (Electronically Signed)
== END 2021-05-01 21:20 | disposition home or self-care (01) ==
LOC: MW.ED 19:49
DX: R07.89 Other chest pain (principal); M62.838 Other muscle spasm; I10 Essential (primary) hypertension; E78.00 Pure hypercholesterolemia, unspecified; I25.10 Atherosclerotic heart disease of native coronary artery without angina pectoris; I25.2 Old myocardial infarction; E11.9 Type 2 diabetes mellitus without complications; E66.9 Obesity, unspecified; Z68.34 Body mass index [BMI] 34.0-34.9, adult; Z88.8 Allergy status to other drugs, medicaments and biological substances; Z79.899 Other long term (current) drug therapy; Z79.82 Long term (current) use of aspirin; Z79.84 Long term (current) use of oral hypoglycemic drugs
CPT/HCPCS: 36415; 71101; 80053; 84484; 85025; 85379; 93005; 96372; 99285; J2360